=== PATIENT | female | born 1965 | race Caucasian/White ===

== ENCOUNTER 2025-07-06 02:57 | Day surgery (SDC) | payer BC, SELFPAY ==
[2025-07-03 08:30] VITALS: BMI 43.0
--- NOTE | 2025-07-03 08:37 | SUR.PREOP ---
[facility] has started construction of its new state of the art ER which will open Spring 2026. With this, we anticipate parking may be a challenge for some our surgical patients and families. Parking spaces are limited but are available for all Surgical, obstetrics, and ER patients sharing this lot. If you arrive and find you are having a hard time finding a parking space, please note that we understand the challenges, please drive around the hospital and park near Hospital Entrance 1. When you enter this entrance, you can ask a volunteer to direct or take you back to the surgical waiting area to check in. We appreciate everyone?s understanding of these expected challenges while we build for your future. Report to the Outpatient Waiting Room, entrance under the green pavilion located off [address], at time 1100 on date 07/06/25. Planned Procedure Time: 1300.? Time changes happen often and if your time is changed the preop area will call you the afternoon before. - You and your visitor will be asked to self-screen and do not enter if you have any COVID symptoms. Please call surgeon if you need to reschedule. - A mask is optional within the hospital at this time. Patients may have clear liquids (water, carbonated beverages, clear teas, apple juice) until 3 hours prior to surgery with a maximum of 20 ounces. - No food from midnight until time of surgery and no smoking, or chewing tobacco (or any form of nicotine). No chewing gum, candy or mints. - Infants may have breast milk until 4 hours before surgery, formula 6 hours prior to surgery. - Children will be allowed to drink immediately following surgery.? If applicable, please bring a bottle or sippy cup to assist with drinking. Juice, water, soda, and popsicles are readily available.? For infants on formula, please bring formula the day of surgery.? Pacifiers are allowed. Take only the following medications with a SIP of water on the morning of surgery: _n/a_ DO NOT STOP ANY OF YOUR OTHER PRESCRIPTION MEDICATIONS PRIOR TO SURGERY EXCEPT THE FOLLOWING Hold all vitamins and supplements for 3 days per anesthesiologist. Medications to discontinue per physician ___hold supplements and vitamins 3 days prior Date to take last dose na Please no make-up, nail malian, hairspray, perfume, deodorant, or body powder the day of surgery.? No jewelry (including any body piercings) or valuables the day of surgery, leave them at home.? Please take a shower or bath the night before, or the morning of, surgery with an antibacterial soap.? Wear comfortable, loose fitting clothing.? Children are encouraged to wear pajamas. - Jewelry must be removed prior to entering the operating room.? Rings and piercings that are not removed may be cut off. - The hospital will not accept responsibility for valuables.? - Please leave all valuables, including medications, at home the day of surgery. If you are going home after surgery, a licensed local company intermodal truck driver must drive you home.? - NO public transportation without another adult if you receive anesthesia. - We recommend that an adult stay with you for 24 hours following discharge. - We also recommend that you do not drive, make important decision, drink alcoholic beverages, or take any drugs that were not prescribed by your health care provider for at least 24 hours after your discharge time. For Pediatric surgeries, we recommend two adults accompany the child home. Follow any additional instructions given to you from your surgeon. Telephone instructions given to ___patient___and asked if any additional questions and then verbalized understanding. Patient advised to call surgeon office or pre surgery nurse liaison [phone] if any additional questions.
--- OUTSIDE RECORDS SUMMARY | 2025-07-06 03:01 | XMS_ITS | Encounter Summary ---
Author Organization [facility] Address [address] [place] [address] Care Team Providers Care Industrial Gas Fitter Name Role Phone Unavailable Primary Care Provider Unavailabl e Encounter Details Date Type Department Care Team (Late st Contact Info) Description 04/22/2023 Lab Requisition [facility] - DermPath Lab [address] [place] [address] Soledad Kuhn MD [address] [place] [address] Social History Tobacco Use Types Packs/Day Years Used Date Smoking Tobacco: Never Assessed Comments Unknown Sex and Gender Information Value Date Recorded Sex Assigned at Not on file 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 Gender Identity Not on file Sexual Orientation Not on file documented as of this encounter Plan of Treatment Not on file documented as of this encounter Procedures Procedure Name Priority Date/Time Associated Diagnosis Comments DERMATOPATHOLOGY Routine 04/21/2023 12:0 0 AM CDT documented in this encounter Results * DERMATOPATHOLOGY (04/21/2023 12:00 AM CDT) Case Report Dermatopathology Report Case: [id number] Authorizing Provider: Soledad Kuhn MD Collected: 04/21/2023 12:00 AM Ordering Location: [facility] DermPath Lab Received: 04/22/2023 02:01 PM Pathologist: Tavo Blair MD Specimen: Skin, right medial madrigal 3 2:26 PM CDT DERMATOPATHOLOGY LABORATORY Final Diagnosis Specimen A. SKIN, right medial madrigal: DERMATOFIBROMA (D23.9) 3 2:26 PM CDT DERMATOPATHOLOGY LABORATORY at 1426 CDT Clinical History Dermatofibroma 3 2:26 PM CDT DERMATOPATHOLOGY LABORATORY Gross Description Specimen A: Received is one formalin filled container labeled with the patient's name and designated right medial madrigal. The specimen consists of a shave biopsy measuring 7x7x2 mm. Jar 0. 3 2:26 PM CDT DERMATOPATHOLOGY LABORATORY Microscopic Description Specimen A. SKIN, right medial madrigal: There is epidermal hyperplasia. Within the dermis, there are fibrohistiocytic cells in haphazard array among coarse collagen bundles. 3 2:26 PM CDT DERMATOPATHOLOGY LABORATORY Disclaimer An external and internal positive and negative controls are appropriate for the histochemical, immunohistochemical and immunofluorescence stain(s) in this case (if any), except where stated explicitly. The performance characteristics of the stain(s) cited in this report were developed and its performance characteristic determined by the Dermatopathology Laboratory at [facility], directed by Dr. Jennifer Blair. These tests need not be, and therefore are not, approved by the [place] Food and Drug Administration. The tests are used for clinical purposes. Billing Codes Specimen Charges Stain Charges 74834 1 3 2:26 PM CDT DERMATOPATHOLOGY LABORATORY Embedded Images 3 2:26 PM CDT DERMATOPATHOLOGY LABORATORY Pathology/Cytolog y TISSUE SPECIMEN FROM SKIN / Unknown 04/21/2023 04/22/2023 2:01 PM CDT us Soledad Kuhn MD LAB - PATHOLOGY/CYTOLOGY ORDERAB LES Final Result DERMATOPATHOLOGY LABORATORY [facility] - Department of Dermatology [address], [address] [phone] documented in this encounter Visit Diagnoses Not on filedocumented in this encounter
--- OUTSIDE RECORDS SUMMARY | 2025-07-06 03:01 | XMS_ITS | Encounter Summary ---
Author Organization [facility] Address [address] [place] [address] Care Team Providers Care Master Cosmetologist Name Role Phone Unavailable Primary Care Provider Unavailabl e Encounter Details Date Type Department Care Team (Late st Contact Info) Description 04/21/2023 Lab Requisition [facility] - DermPath Lab [address] [place] [address] Soledad Kuhn MD [address] [place] [address] Neoplasm of uncertain behavior of skin Social History Tobacco Use Types Packs/Day Years Used Date Smoking Tobacco: Never Assessed Comments Unknown Sex and Gender Information Value Date Recorded Sex Assigned at Not on file 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
--- OUTSIDE RECORDS SUMMARY | 2025-07-06 03:01 | XMS_ITS | Clinical Summary ---
Author Organization [facility] Address [address] [place] [address] Care Team Providers Care Prefitter Name Role Phone Unavailable Primary Care Provider Unavailabl e Source Comments [facility],non-owned Affiliates and Associated Physician Practices is amultiple site organization consisting of ambulatory clinics and hospital sitesin [place], [place], [place] and [place]. This disclosure is being madepursuant to the Care Everywhere program and may not contain all information available regarding this patient. Last updated 18.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 Gender Identity Not on file Sexual Orientation Not on file Plan of Treatment Health Maintenance Due Date Last Done Comments COLOGUARD (AGES 45-75) - COL ON CA SCREENING 1963 COLON MONITORING 1963 COLONOSCOPY - COLON CA SCREENING 1963 CT COLONOGRAPHY - COLON CA SCREENING 1963 Colorectal Cancer Screening 1963 FIT - COLON CA SCREENING 1963 FLEX SIG - COLON CA SCREENING 1963 LIPID TESTING 1963 MAMMOGRAM 1963 HIV SCREENING 1978 HEPATITIS C SCREENING 07/31/1981 DTAP/TDAP/TD VACCINES (1 - Tdap) 1982 PAP SMEAR 1984 PNEUMOCOCCAL VACCINE 50+ (1 of 1 - PCV) 2013 ZOSTER VACCINE (1 of 2) 2013 DEPRESSION SCREENING 07/26/2024 COVID-19 VACCINE (1 - 2024-2 6 season) 2025 INFLUENZA VACCINE (#1) 2025 Respiratory Syncytial Virus (RSV) Vaccine Pt: or over 60 yrs (1 - 1-dose 75+ series) 2038 HEPATITIS B VACCINE Aged Out No longe r eligible based on patient's age to complete this topic HIB VACCINE Aged Out No longer eligi ble based on patient's age to complete this topic HPV VACCINE Aged Out No longer eligi ble based on patient's age to complete this topic MENINGOCOCCAL (Group B) VACC INE SHARED DECISION-MAKING Aged Out No longer eligibl e based on patient's age to complete this topic MENINGOCOCCAL GROUPS A/C/Y/W VACCINE Aged Out No longer eligible b ased on patient's age to complete [place] [id number] [employer]
--- OUTSIDE RECORDS SUMMARY | 2025-07-06 03:01 | XMS_ITS | Continuity of Care Document ---
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 Plan of Treatment Reminders Order Date Submit Date Provider Last Modified By Organization Details Last Modified Time Details Appointments SURG Hysterosc opy 2024 01:00P Tavo BARFIELD MD Not available Not available Not available SURG POST OP 2024 11:30A Tavo BARFIELD MD Not available Not available Not available Lab None recorded. Referral None recorded. Procedures None recorded. Surgeries None recorded. Imaging [facility], pelvis 2024 [email or web address] [place], [address], [place], [address], 06/27/2025 20:42:27 US, transvagi nal 2024 025 [email or web address] [place], [address], [place], [address], 06/27/2025 20:42:27 Medication Orders None recorded. Patient TargetsNo targets recorded. Patient InstructionsNo instructions recorded. Reason for Referral None Reported. Results Created Date Observation Date Name Description Value Unit Range Abnormal Flag Note LastModifiedBy Organization Detail LastModifiedTime 06/18/20 25 06/18/2025 CBC W/DIF F WBC 9.6 10'3/ uL 3.5-10 .5 Not Available [facility] (Lab) [address], [place], [address], 06/25/2025 23:43:17 06/18/20 25 06/18/2025 CBC W/DIF F RBC 5.01 10'6/ uL (based on docume nted legal sex) 3.80-5 .20 Not Available [facility] (Lab) [address], [place], [address], 06/25/2025 23:43:17 06/18/20 25 06/18/2025 CBC W/DIF F HGB 15.0 g/dL (based on docume nted legal sex) 11.6-1 5.4 Not Available [facility] (Lab) [address], [place], [address], 06/25/2025 23:43:17 06/18/20 25 06/18/2025 CBC W/DIF F HCT 45.0 % (based on docume nted legal sex) 34.0-4 5.0 Not Available [facility] (Lab) [address], [place], [address], 06/25/2025 23:43:17 06/18/20 25 06/18/2025 CBC W/DIF F MCV 89.8 fL 80.0-9 9.0 Not Available [facility] (Lab) [address], [place], [address], 06/25/2025 23:43:17 06/18/20 25 06/18/2025 CBC W/DIF F MCH 29.9 pg 27.0-3 4.0 Not Available [facility] (Lab) [address], [place], [address], 06/25/2025 23:43:17 06/18/20 25 06/18/2025 CBC W/DIF F MCHC 33.3 g/dL 32.0-3 5.5 Not Available [facility] (Lab) [address], [place], [address], 06/25/2025 23:43:17 06/18/20 25 06/18/2025 CBC W/DIF F RDW 13.7 % 11.0-1 5.0 Not Available [facility] (Lab) [address] [facility], [place], [address], 06/25/2025 23:43:17 06/18/20 25 06/18/2025 CBC W/DIF F plt 249 10'3/ uL 150-40 0 Not Available [facility] (Lab) [address] [facility], [place], [address], 06/25/2025 23:43:17 06/18/20 25 06/18/2025 CBC W/DIF F MPV 13.4 fL 8.8-12 .1 high Not Available [facility] (Lab) [address] [facility], [place], [address], 06/25/2025 23:43:17 06/18/20 25 06/18/2025 CBC W/DIF F NRBC's 0.0 % 0.0 Not Available [facility] (Lab) [address] [facility], [place], [address], 06/25/2025 23:43:17 06/18/20 25 06/18/2025 CBC W/DIF F absolute NRBCs 0.0 10'3/ uL no refere nce range establ ished Not Available [facility] (Lab) [address] [facility], [place], [address], 06/25/2025 23:43:17 06/18/20 25 06/18/2025 CBC W/DIF F neutrophils 61.8 % 34.0-7 3.0 Not Available [facility] (Lab) [address] [facility], [place], [address], 06/25/2025 23:43:17 06/18/20 25 06/18/2025 CBC W/DIF F lymphocytes 30.8 % 15.0-5 0.0 Not Available [facility] (Lab) [address] [facility], [place], [address], 06/25/2025 23:43:17 06/18/20 25 06/18/2025 CBC W/DIF F monocytes 5.9 % 1.0-15 .0 Not Available [facility] (Lab) [address] [facility], [place], [address], 06/25/2025 23:43:17 06/18/20 25 06/18/2025 CBC W/DIF F eosinophils 0.9 % 0.0-8. 0 Not Available [facility] (Lab) [address] [facility], [place], [address], 06/25/2025 23:43:17 06/18/20 25 06/18/2025 CBC W/DIF F basophils 0.2 % 0.0-2. 0 Not Available [facility] (Lab) [address] [facility], [place], [address], 06/25/2025 23:43:17 06/18/20 25 06/18/2025 CBC W/DIF F immature granulocytes 0.4 % no define d refere nce range Immat ure Granu locyt es (IG) repre sents autom ated enume ratio n of Metam yeloc ytes, Myelo cytes and Promy elocy jeremías when IG is < 5%. Blast s are not inclu ded in IG and repor fredy separ ately if prese nt. Not Available [facility] (Lab) [address] [facility], [place], [address], 06/25/2025 23:43:17 06/18/20 25 06/18/2025 CBC W/DIF F absolute neutrophils 5.9 10'3/ uL 1.5-8. 0 Not Available [facility] (Lab) [address] [facility], [place], [address], 06/25/2025 23:43:17 06/18/20 25 06/18/2025 CBC W/DIF F absolute lymphocytes 2.9 10'3/ uL 1.0-4. 0 Not Available [facility] (Lab) [address] [facility], [place], [address], 06/25/2025 23:43:17 06/18/20 25 06/18/2025 CBC W/DIF F absolute monocytes 0.6 10'3/ uL 0.2-1. 0 Not Available [facility] (Lab) [address] [place], [address], 06/25/2025 23:43:17 06/18/20 25 06/18/2025 CBC W/DIF F absolute eosinophils 0.1 10'3/ uL 0.0-0. 6 Not Available [facility] (Lab) [address] [facility], [place], [address], 06/25/2025 23:43:17 06/18/20 25 06/18/2025 CBC W/DIF F absolute basophils 0.0 10'3/ uL 0.0-0. 3 Not Available [facility] (Lab) [address] [facility], [place], [address], 06/25/2025 23:43:17 06/18/20 25 06/18/2025 CBC W/DIF F absolute immature granulocytes 0.0 10'3/ uL 0.00-0 .10 Refer ence range s for nonbi nary/ inter sex or unspe cifie d gende r patie nts have not been estab lishe d. Pleas e [facility] for range s estab lishe d for cisge nder patie nts and evalu ate in the clini [place] anna xt of the indiv idual patie nt: https ://la jya book. nm.or g/gen derx Not Available [facility] (Lab) [address] [place], [address], 06/25/2025 23:43:17 06/18/20 25 06/18/2025 CMP(C OMPRE HENSI VE METAB OLIC PANEL ) sodium 143 mmol/ L 133-14 6 Not Available [facility] (Lab) [address] [facility], [place], [address], 06/25/2025 23:43:17 06/18/20 25 06/18/2025 CMP(C OMPRE HENSI VE METAB OLIC PANEL ) potassium 4.4 mmol/ L 3.5-5. 1 Not Available [facility] (Lab) [address] [facility], [place], [address], 06/25/2025 23:43:17 06/18/20 25 06/18/2025 CMP(C OMPRE HENSI VE METAB OLIC PANEL ) chloride 105 mmol/ L 98-107 Not Available [facility] (Lab) [address] [facility], [place], [address], 06/25/2025 23:43:17 06/18/20 25 06/18/2025 CMP(C OMPRE HENSI VE METAB OLIC PANEL ) carbon dioxide 26 mmol/ L 21-31 Not Available [facility] (Lab) [address] [facility], [place], [address], 06/25/2025 23:43:17 06/18/20 25 06/18/2025 CMP(C OMPRE HENSI VE METAB OLIC PANEL ) anion gap 12 mmol/ L 4-13 Not Available [facility] (Lab) [address] [facility], [place], [address], 06/25/2025 23:43:17 06/18/20 25 06/18/2025 CMP(C OMPRE HENSI VE METAB OLIC PANEL ) blood urea nitrogen 13 mg/dL 7-25 Not Available [facility] (Lab) [address] [facility], [place], [address], 06/25/2025 23:43:17 06/18/20 25 06/18/2025 CMP(C OMPRE HENSI VE METAB OLIC PANEL ) creatinine 0.75 mg/dL 0.60-1 .30 Not Available [facility] (Lab) [address] [facility], [place], [address], 06/25/2025 23:43:17 06/18/20 25 06/18/2025 CMP(C OMPRE HENSI VE METAB OLIC PANEL ) egfrcr (CKD-epi 2020) >90 mL/mi n/1.7 3_m2 >=60 Not Available [facility] (Lab) [address], [place], [address], 06/25/2025 23:43:17 06/18/20 25 06/18/2025 CMP(C OMPRE HENSI VE METAB OLIC PANEL ) calcium 10.1 mg/dL 8.3-10 .5 Not Available [facility] (Lab) [address], [place], [address], 06/25/2025 23:43:17 06/18/20 25 06/18/2025 CMP(C OMPRE HENSI VE METAB OLIC PANEL ) glucose 97 mg/dL 70-100 Not Available [facility] (Lab) [address], [place], [address], 06/25/2025 23:43:17 06/18/20 25 06/18/2025 CMP(C OMPRE HENSI VE METAB OLIC PANEL ) protein, total 7.6 g/dL 6.4-8. 3 Not Available [facility] (Lab) [address] [facility], [place], [address], 06/25/2025 23:43:17 06/18/20 25 06/18/2025 CMP(C OMPRE HENSI VE METAB OLIC PANEL ) albumin 4.7 g/dL 3.5-5. 0 Not Available [facility] (Lab) [address], [place], [address], 06/25/2025 23:43:17 06/18/20 25 06/18/2025 CMP(C OMPRE HENSI VE METAB OLIC PANEL ) ALT 21 units /L 9-43 Not Available [facility] (Lab) [address] [facility], [place], [address], 06/25/2025 23:43:17 06/18/20 25 06/18/2025 CMP(C OMPRE HENSI VE METAB OLIC PANEL ) alkaline phosphatase 104 units /L 34-104 Not Available [facility] (Lab) [address] [facility], [place], [address], 06/25/2025 23:43:17 06/18/20 25 06/18/2025 CMP(C OMPRE HENSI VE METAB OLIC PANEL ) AST 25 units /L 13-39 Not Available [facility] (Lab) [address] [facility], [place], [address], 06/25/2025 23:43:17 06/18/20 25 06/18/2025 CMP(C OMPRE HENSI VE METAB OLIC PANEL ) bilirubin, total 0.4 mg/dL 0.2-1. 2 Not Available [facility] (Lab) [address] [place], [address], 06/25/2025 23:43:17 06/18/20 25 06/18/2025 DHEA SULFA TE DHEA-sulfate 148 ug/dL Femal e Range s Age(y ) Range (ug/d L) 10-15 34-28 0 15-20 65-36 8 20-25 148-4 07 25-35 99-34 0 35-45 61-33 7 45-55 35-25 6 55-65 19-20 5 65-75 9-246 > 75 12-15 4 Not Available [facility] (Lab) [address] [facility], [place], [address], 06/25/2025 23:43:17 06/18/20 25 06/18/2025 TSH, REFLE X FREE T4 TSH 3.43 uIU/m L 0.30-5 .33 Not Available [facility] (Lab) [address] [place], [address], 06/25/2025 23:43:18 06/18/20 25 06/18/2025 PROGE STERO NE progesterone 0.20 NG/mL The test metho d is elect scout milum inesc ence immun oassa y perfo rmed on the Scout Ozzy e801. Value s obtai tala with diffe rent assay metho ds by other labor atori es canno t be used inter [facility] . Femal e Proge stero ne Range s: Folli cular phase 0.06- 0.89 ng/mL Ovula tion phase 0.12- 12.00 ng/mL Lutea l phase 1.83- 23.90 ng/mL Postm enopa usal <0.05 -0.13 ng/mL Healt hy Pregn ant Women 1st Trime ster 11.0- 44.30 2nd Trime ster 25.40 -83.3 0 3rd Trime ster 58.70 -214. 00 Not Available [facility] (Lab) [address] [place], [address], 06/25/2025 23:43:18 06/18/20 25 06/18/2025 PROLA CTIN prolactin, total 9.00 NG/mL 4.79-2 3.30 The test metho d is [facility] immun oassa y perfo rmed on the [employer] Ozzy e801. Value s obtai tala with diffe rent assay metho ds by other labor atori es canno t be used inter [facility] . Not Available [facility] (Lab) [address] [place], [address], 06/25/2025 23:43:19 06/18/20 25 06/18/2025 FSH, LH, ESTRA DIOL estradiol 30.3 pg/mL The test metho d is elect scout milum inesc ence immun oassa y perfo rmed on the [employer] Ozzy e801. Value s obtai tala with diffe rent assay metho ds by other labor atori es canno t be used inter [facility] . Femal e Estra diol Range s: Folli cular phase 12.4- 233 pg/mL Ovula tion phase 41.0- 398 pg/mL Lutea l phase 22.3- 341 pg/mL Postm enopa usal <5-13 8 pg/mL Healt hy Pregn ant Women 1st Trime ster 154-3 243 pg/mL 2nd Trime ster 1561- 41283 pg/mL 3rd Trime ster 8525- >3000 0 pg/mL Not Available [facility] (Lab) [address], [place], [address], 06/25/2025 23:43:19 06/18/20 25 06/18/2025 FSH, LH, ESTRA DIOL FSH 48.7 mIU/m L The test metho d is elect scout milum inesc ence immun oassa y perfo rmed on the [employer] e801. Value s obtai tala with diffe rent assay metho ds by other labor atori es canno t be used inter [facility] . Femal es Folli cular : 3.5-1 2.5 mIU/m L Ovula tion: 4.7-2 1.5 mIU/m L Lutea l: 1.7-7 .7 mIU/m L Postm enopa use: 25.8- 134.8 mIU/m L Not Available [facility] (Lab) [address], [place], [address], 06/25/2025 23:43:19 06/18/20 25 06/18/2025 FSH, LH, ESTRA DIOL LH 28.1 mIU/m L The test metho d is elect scout milum inesc ence immun oassa y perfo rmed on the [employer] e801. Value s obtai tala with diffe rent assay metho ds by other labor atori es canno t be used inter [facility] . Femal es Mid-F ollic ular: 2.4-1 2.6 mIU/m L Mid-C ycle: 14.0- 95.6 mIU/m L Mid-L uteal : 1.0-1 1.4 mIU/m L Postm enopa use: 7.7-5 8.5 mIU/m L Not Available [facility] (Lab) [address], [place], [address], 06/25/2025 23:43:19 06/18/20 25 06/18/2025 HEMOG LOBIN A1C hemoglobin A1C 5.6 % 4.0-5. 6 The Ameri can Diabe jeremías Assoc iatio n recom mends that a prima ry goal of thera py caritoul d be a HBA1C of < 7% and that physi cians shoul d reeva luate the treat ment regim en in patie nts with HBA1C value s consi stent ly > 8%. <5.7% Morenita l 5.7 - 6.4% Incre ased risk for diabe jeremías >=6.5 % Diagn ostic of diabe jeremías <7.0% Goal of thera py >8.0% Actio n sugge sted Not Available [facility] (Lab) [address], [place], [address], 06/25/2025 23:43:19 06/18/2006/18/2025 TESTO STERO NE, FREE( DIALY SIS) AND TOTAL (LC/M S/MS) testosterone , total 36 NG/dL 2-45 For addit ional infor iris rodgers e refer to http: //[facility] [place] mishel darnell.que stdia gnost ics.c om/fa q/ Total Testo stero neLCM SMSFA Q165 (This link is being provi ded for infor serge galloway/ educa penelope l purpo ses only. ) This test was devel oped and its mei tical perfo rmanc e marisel cteri stics have been deter mined by [facility] [place], [place]. It has not been clear ed or appro diana by the U.S. Food and Drug Admin istra tion. This assay has been valid ated pursu ant to the CLIA regul ation s and is used for clini [place] purpo ses. Not Available [facility] (Lab) [address], [place], [address], 06/25/2025 23:43:19 06/18/20 25 06/18/2025 TESTO STERO NE, FREE( DIALY SIS) AND TOTAL (LC/M S/MS) testosterone , free 4.3 pg/mL 0.1-6. 4 This test was devel oped and its mei tical perfo rmanc e marisel cteri stics have been deter mined by [facility] [place], [place]. It has not been clear ed or appro diana by the U.S. Food and Drug Admin istra tion. This assay has been valid ated pursu ant to the CLIA regul ation s and is used for clini [place] purpo ses. Perfo rming Organ izati on Infor matdominga n: Site ID: AMD Name: [facility] Inst[facility] tute Addre ss: [id number] [employer]. [place], [place] Direc tor: Chacha Ventura MD PhD Not Available [facility] (Lab) [address] [facility], [place], [address], 06/25/2025 23:43:19 06/18/20 25 06/18/2025 IMAGE GUIDE D PAP AND HPV REGAR DLESS image guided Pap, HPV regardless of Pap result SEE RESULT S BELOW CASE REPOR T: Cytol ogy Gynec ologi [place] Repor t Case: [id number] Autho gordy g Provi myra: Dermo dy, Zhanna , ANP, DRAFTER (CAD) ELECTRONIC Colle cted: 06/18 1026 Order ing Locat ion: [place] Patho logy Recei diana: 06/19 0157 First Scree n: Nojohanny ni, Gary ed, CT Speci men: Scree ro Pap - Image d, Cervi x STATE MENT OF ADEQU ACY: Satis facto ry for evalu ation Trans forma tion zone compo nent absen t ----- ----- ----- ----- ----- ----- ----- ----- ----- ----- ----- ----- ----- ----- ----- ----- ----- ---- FINAL DIAGN OSIS: Negat mario for Intra epith elial Elham darnell or German villasenor (NIL) . 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 COMME NT: This speci men was revie wed by a Cytot echno logis t and/o r Patho logis t (as indic ated in this repor t) after evalu ation using the Thinp rep Imagi ng Syste m. CL[facility] [place] INFOR MATIO N: Menst rual Statu s: LMP (if appli cable ): 06/08 [facility] Histo ry/Pr eviou s Pap: Type of Neopl allison (if appli cable ): Signi fican t [facility] Findi ngs: Other Histo ry: Hormo jorge (if appli cable ): PAP EDUCA PENELOPE L NOTE: The Pap Test is a scree ro test with an inher ent false negat mario rate. Liqui d-bas ed sampl ing may decre ase, but will not elimi bonnie, false negat mario resul ts. A negat mario resul t does not precl ude the prese nce and/o r devel opmen t of disea se, since the prese nce of abnor mal cells in the sampl e depen ds on the locat ion of the lesio n and sampl ing techn ique. Violette nued regul ar scree ro is the best metho d of cance r preve ntion . If repor fredy cytol ogic findi ng do not corre late with physi [place] and/o r histo rical findi ngs, furth er inves tigat ion is recom cyn d, as laurai hector storm nted. Not Available [facility] (Lab) [address], [place], [address], 06/25/2025 23:43:20 06/27/20 25 06/27/2025 US, pelvi s No observ ation record ed. [facility] [address], [place], [address], 06/27/2025 13:28:46 06/27/20 25 06/27/2025 US, trans vagin al No observ ation record ed. [facility] [address], [place], [address], 06/27/2025 13:28:56 06/27/20 25 06/27/2025 US, pelvi s No observ ation record ed. [email or web address] [address] [place] [address], [place], [address], 06/27/2025 17:33:01 Result Notes None recorded. Problems Name Problem SNOMED Code Status Onset Date Resolution Date Notes Provider Name and Address Organization Details Recorded Time SNOMED CT Concept Active 2016 Encntr for general adult medical exam w/o abnormal findings;R ecorded Elsewhere: No Locatio n: [facility] rce: EHR Chroni c: N Practice ID: [id number] Billa ble Time: 01:15:00 PM Not Available [facility] 0 21:26:[address] Concept Active 2016 Encntr for patient care associate exam (general) (routine) w/o abn findings;R ecorded Elsewhere: No Locatio n: [facility] rce: EHR Chroni c: N Practice ID: [id number] Billa ble Time: 01:15:00 PM Not Available [facility] 0 21:26:26 Screening for malignant neoplasm of rectum Active 2016 Encounter for screening for malignant neoplasm of rectum;Rec orded Elsewhere: No Locatio n: [facility] rce: EHR Chroni c: N Practice ID: [id number] Billtalya ble Time: 01:15:00 PM Not Available [facility] 0 21:26:26 Problem Notes None recorded. Procedures Surgical History Date Name Laterality Status Provider Name and Address Organization Details Recorded Time 05/14/20 25 Date of Last Mammogram completed [facility] 06/18/2025 10:24:32 04/25/20 21 Date of Last Pap Smear completed [facility] 06/18/2025 10:24:32 07/26/19 17 completed [facility] 06/18/2025 10:24:32 07/26/18 97 Cholecystectomy completed [facility] 06/18/2025 10:32:50 06/05/19 83 Tonsillectomy completed [facility] 06/18/2025 10:32:55 Colonoscopy completed [facility] 06/18/2025 10:32:31 Imaging Results None recorded. Procedure Notes None recorded. Medical Equipment None Reported. Allergies Allergen ID Allergen Name Allergen Category Reaction Reaction Severity Criticality Documentation Date Start Date Code Code System Note Provider Name and Address Organization Details Recorded Time 88973 Product containin g penicilli n (product) medicatio n hives Not available [facility] 06/18/20252019 31681 8001 SNOMED Not Available [facility] - External Data Service - prod 03:12:37 62832 Penicilli n Not available hives moderate Not available 06/18/2025 28112 RxNorm [facility] 5 10:28:22 Medications Not known to be on any medication Vitals None Recorded Social History Question Answer Notes LastModified by Organizat ion Details LastModified Time Tobacco Smoking Status Current Every Day Smoker [facility] 06/18/2025 10:32:02 Do You Have An Advance Directive? No [email or web address] Information n ot available 06/18/2025 Are You Blind Or Do You Have Difficulty Seeing? No [email or web address] Information n ot available 06/18/2025 What Is Your Level Of Caffeine Consumption? Moderate [email or web address] Information not available 06/18/2025 How Much Tobacco Do You Chew? None [email or web address] Information not available 06/18/2025 In The 14 Days Before Symptom Onset, Have You Had Close Contact With A Laboratory-confirm ed COVID-19 While That Case Was Ill? No [email or web address] Information n ot available 06/18/2025 In The 14 Days Before Symptom Onset, Have You Had Close Contact With A Person Who Is Under Investigation For COVID-19 While That Person Was Ill? No [email or web address] Information not available 06/18/2025 Have You Been To An Area Known To Be High Risk For COVID-19? No [email or web address] Information not available 06/18/2025 Are You Deaf Or Do You Have Serious Difficulty Hearing? No [email or web address] Information not available 06/18/2025 What Type Of Diet Are You Following? REGULAR [email or web address] Information n ot available 06/18/2025 What Is The Highest Grade Or Level Of School You Have Completed Or The Highest Degree You Have Received? [id number] [email or web address] Information not available 06/18/2025 Are There Any Guns Present In Your Home? No [email or web address] Information not available 06/18/2025 Do You Use Protection During Sex? No [email or web address] Information not available 06/18/2025 Do You Use Your Seat Belt Or Car Seat Routinely? Yes [email or web address] Information not available 06/18/2025 Are You Sexually Active? Yes [email or web address] Information not available 06/18/2025 Do You Have Smoke And Carbon Monoxide Detectors In Your Home? Yes [email or web address] Information not available 06/18/2025 At What Age Did You Start Smoking Tobacco? 18 [email or web address] Information not available 06/18/2025 How Much Tobacco Do You Smoke? 1 PPW [email or web address] Information not available 06/18/2025 Do You Use Sunscreen Routinely? Yes [email or web address] Information not available 06/18/2025 How Many Years Have You Smoked Tobacco? 30 [email or web address] Information not available 06/18/2025 Have You Used IV Drugs? No [email or web address] Information not available 06/18/2025 Do You Have Difficulty Walking Or Climbing Stairs? No [email or web address] Information not available 06/18/2025 Sex: Unknown Functional Status Question Answer Note LastModified by Organizat ion Details LastModified Time Do you use any illicit or recreational drugs? No [email or web address] Information not available 06/18/2025 What is your level of alcohol consumption? Occasional [email or web address] Information not available 06/18/2025 Are you currently employed? Yes [email or web address] Information not available 06/18/2025 Are you able to care for yourself independently? 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 No Information not available 06/18/2025 What is your exercise level? Occasional [email or web address] Information not available 06/18/2025 Mental Status Question Answer Note LastModified by Organization D etails LastModified Time Do you feel stressed (tense, restless, nervous, or anxious, or unable to sleep at night)? [id number] [email or web address] Information not available 06/18/2025 Family History Relationship Description Onset Age of this Age Resolved Age Notes LastModified by Organization Details LastModified Time Unspecified Relation Malignant neoplasm of cervix uteri niece [email or web address] Not available 10:31:52 Medical History Condition Response No Past Medical History Y Gynecological History Statement/Question Response Abnormal Pap Y Flow Light Date of Last Mammogram 05/14/2025 Date of LMP 06/08/2025 Y STIs/STDs N HPV Vaccine N Duration of Flow (days) 2 Current Control Method Partner Vas ectomy Age at First Child 22 If Post Menopausal, Age at Menopause 47 Date of Last Colonoscopy Sexually Active? Y Date of DEXA bone scan Age of first menstrual cycle 9 Date of Last Pap Smear 04/25/2021 Sexual Problems? N Desired Control Method None 07/26/2016 N 08/26/1986 Obstetrics History GPAL:G 2 P 2 0 0 2 Type Value Full Term 2 Living 2 Total 2 Past Encounters Encounter ID Performer Location Encounter Start Date Encounter Closed Date Diagnosis/Indication Diagnosis SNOMED-CT Code Diagnosis ICD10 Code Diagnosis IMO Codes Diagnosis Note [id number] ZHANNA MATHEWS NP [place] [address] [address] 06/18/2025 10:17:38 06/18/2025 11:14:01 Abnormal uterine bleeding [id number] N93.9 [id number] The patient and I discussed the various causes of abnormal uterine bleeding, including polyps, fibroids, hyperplasi a, atypia, anovulatio n, etc.We reviewed the typical evaluation with labs, pelvic US and possible endometria l biopsy. Briefly discussed the options available for treatment (depending on the results of evaluation ).Pelvic ultrasound and labs ordered.Wi ll f/u with results and next steps in plan of care. [id number] Nathan Barfiedl MD [place] [address] [address] 06/27/2025 10:18:03 06/27/2025 11:00:31 Abnormal uterine bleeding [id number] 9100 N93.9 [id number] Health Concerns Section Related Observation LastModified by Organization Detai ls LastModified Time None Recorded Concern Status LastModified by Organization Details LastModified Time None Recorded Payers Encounter Date Sequence Insurance Name Policy Number Policy Martinez Covered Member ID Martinez Member ID Guarantor Name 06/27/2025 1 [id number] [id number] Juanita Collins [id number] Juanita Collins OBGyn Episode No OBEpisode recorded.
--- OUTSIDE RECORDS SUMMARY | 2025-07-06 03:01 | XMS_ITS | Clinical Summary ---
Author Organization [facility] [address] [place] [address] Care Team Providers Care Engine Manager Name Role Phone Naya Alicea Primary Care Provider [phone] Allergies Active Allergy Reactions Criticality Noted Date Comments Penicillins Hives Medium 12/24/2020 Medications No known medications Active Problems Problem Noted Date Diagnosed Date Dizziness and giddiness 12/24/2020 Surgical History Surgery Date Site/Laterality Comments TONSILLECTOMY CHOLECYSTECTOMY Family History Medical History Relation Name Comments Cancer Brother Relation Name Status Comments Brother Social History Tobacco Use Types Packs/Day Years Used Date Smoking Tobacco: Every Day Cigarettes Smokeless Tobacco: Never Personal Safety Answer Date Recorded Getting School Help Needed Not on file 09/25 Comments Unknown Sex and Gender Information Value Date Recorded Sex Assigned at Not on file Legal Sex Female 11:36 AM CDT Gender Identity Female 12/19/2020 8:48 AM CDT Sexual Orientation Straight 12/19/2020 8: 48 AM CDT Last Filed Vital Signs Vital Sign Reading Time Taken Comments Blood Pressure - - Pulse - - Temperature 36.8 C (98.2 F) 12/24/2020 2:01 PM CDT Respiratory Rate - - Oxygen Saturation - - Inhaled Oxygen Concentration - - Weight 113.4 kg (250 lb) 12/24/2020 2:01 PM CDT Height 170.2 cm (5' 7) 12/24/2020 2:01 PM CDT Body Mass Index 39.16 12/24/2020 2:01 PM CDT Plan of Treatment Not on file Insurance [employer] [id number] Care Teams Engine Manager Relationship Specialty Start Date End Date Naya Alicea PA PCP - General Physician Casing Wringer Operator 12/17/20
--- OUTSIDE RECORDS SUMMARY | 2025-07-06 03:02 | XMS_ITS | Data Portability ---
Author Organization [facility] Address [address] [place] [address] Care Team Providers Care Precision Dyer Name Role Phone MIR COLONSIE Primary Care Provider Assessment No assessment recorded. Plan of Treatment Reminders Order Date Submit Date Provider Last Modified By Organization Details Last Modified Time Details Appointments SURG Hysterosc opy 2024 01:00P Tavo BARFIELD MD Not available Not available Not available SURG POST OP 2024 11:30A Tavo BARFIELD MD Not available Not available Not available Lab hormone panel, serum or plasma 2024 025 [facility] (Lab), [address], [place], [address], 06/25/2025 23:43:19 TSH, serum or plasma 2024 025 [facility] (Lab), [address], [place], [address], 06/25/2025 23:43:18 CBC w/ auto diff 2024 025 [facility] (Lab), [address], [place], [address], 06/25/2025 23:43:17 progester one, serum 2024 025 [facility] (Lab), [address], [place], [address], 06/25/2025 23:43:18 prolactin , serum 2024 025 [facility] (Lab), [address] , [place], [address], 06/25/2025 23:43:19 testoster one free/test osterone total, ratio, serum 2024 025 [facility] (Lab), [address], [place], [address], 06/25/2025 23:43:19 dhea-sulf ate, serum 2024 025 [facility] (Lab), [address], [place], [address], 06/25/2025 23:43:18 CMP, serum or plasma 2024 025 [facility] (Lab), [address] , [place], [address], 06/25/2025 23:43:17 HbA1c (hemoglob in A1c), blood 2024 025 [facility] (Lab), [address], [place], [address], 06/25/2025 23:43:19 pap, IG + HR HPV - HPV regardles s but if HPV is positive need subtyping 16,18/45 2024 025 [facility] (Lab), [address] , [place], [address], 06/25/2025 23:43:20 Referral None recorded. Procedures None recorded. Surgeries dilation and curettage with hysterosc opy (SURG) 2024 025 [email or web address] [facility], [address] [address], [place], [address], 07/02/2025 13:08:52 Imaging US, pelvis 2024 025 [email or web address], [place], [address], 06/27/2025 20:42:27 US, transvagi nal 2024 025 [email or web address], [address], [place], [address], 06/27/2025 20:42:27 Medication Orders None recorded. Patient TargetsNo targets recorded. Patient InstructionsNo instructions recorded. Reason for Referral None Reported. Results Created Date Observation Date Name Description Value Unit Range Abnormal Flag Note LastModifiedBy Organization Detail LastModifiedTime 06/18/2006/18/2025 CBC W/DIF F WBC 9.6 10'3/ uL 3.5-10 .5 Not Available [facility] (Lab) [address], [place], [address], 06/25/2025 23:43:17 06/18/20 25 06/18/2025 CBC W/DIF F RBC 5.01 10'6/ uL (based on docume nted legal sex) 3.80-5 .20 Not Available [facility] (Lab) [address], [place], [address], 06/25/2025 23:43:17 06/18/20 25 06/18/2025 CBC W/DIF F HGB 15.0 g/dL (based on docume nted legal sex) 11.6-1 5.4 Not Available [facility] (Lab) [address], [place], [address], 06/25/2025 23:43:17 06/18/20 25 06/18/2025 CBC W/DIF F HCT 45.0 % (based on docume nted legal sex) 34.0-4 5.0 Not Available [facility] (Lab) [address], [place], [address], 06/25/2025 23:43:17 06/18/20 25 06/18/2025 CBC W/DIF F MCV 89.8 fL 80.0-9 9.0 Not Available [facility] (Lab) [address], [place], [address], 06/25/2025 23:43:17 06/18/20 25 06/18/2025 CBC W/DIF F MCH 29.9 pg 27.0-3 4.0 Not Available [facility] (Lab) [address], [place], [address], 06/25/2025 23:43:17 06/18/20 25 06/18/2025 CBC W/DIF F MCHC 33.3 g/dL 32.0-3 5.5 Not Available [facility] (Lab) [address], [place], [address], 06/25/2025 23:43:17 06/18/20 25 06/18/2025 CBC W/DIF F RDW 13.7 % 11.0-1 5.0 Not Available [facility] (Lab) [address], [place], [address], 06/25/2025 23:43:17 06/18/20 25 06/18/2025 CBC W/DIF F plt 249 10'3/ uL 150-40 0 Not Available [facility] (Lab) [address], [place], [address], 06/25/2025 23:43:17 06/18/20 25 06/18/2025 CBC W/DIF F MPV 13.4 fL 8.8-12 .1 high Not Available [facility] (Lab) [address], [place], [address], 06/25/2025 23:43:17 06/18/20 25 06/18/2025 CBC W/DIF F NRBC's 0.0 % 0.0 Not Available [facility] (Lab) [address], [place], [address], 06/25/2025 23:43:17 06/18/20 25 06/18/2025 CBC W/DIF F absolute NRBCs 0.0 10'3/ uL no refere nce range establ ished Not Available [facility] (Lab) [address] [facility], [place], [address], 06/25/2025 23:43:17 06/18/20 25 06/18/2025 CBC W/DIF F neutrophils 61.8 % 34.0-7 3.0 Not Available [facility] (Lab) [address] [facility], [place], [address], 06/25/2025 23:43:17 06/18/20 25 06/18/2025 CBC W/DIF F lymphocytes 30.8 % 15.0-5 0.0 Not Available [facility] (Lab) [address] [facility], [place], [address], 06/25/2025 23:43:17 06/18/20 25 06/18/2025 CBC W/DIF F monocytes 5.9 % 1.0-15 .0 Not Available [facility] (Lab) [address] [facility], [place], [address], 06/25/2025 23:43:17 06/18/20 25 06/18/2025 CBC W/DIF F eosinophils 0.9 % 0.0-8. 0 Not Available [facility] (Lab) [address] [facility], [place], [address], 06/25/2025 23:43:17 06/18/20 25 06/18/2025 CBC W/DIF F basophils 0.2 % 0.0-2. 0 Not Available [facility] (Lab) [address] [place], [address], 06/25/2025 23:43:17 06/18/20 25 06/18/2025 CBC W/DIF [...] separ ately if prese nt. Not Available [facility] (Lab) [address] [facility], [place], [address], 06/25/2025 23:43:17 06/18/20 25 06/18/2025 CBC W/DIF F absolute neutrophils 5.9 10'3/ uL 1.5-8. 0 Not Available [facility] (Lab) [address] [facility], [place], [address], 06/25/2025 23:43:17 06/18/20 25 06/18/2025 CBC W/DIF F absolute lymphocytes 2.9 10'3/ uL 1.0-4. 0 Not Available [facility] (Lab) [address] [facility], [place], [address], 06/25/2025 23:43:17 06/18/20 25 06/18/2025 CBC W/DIF F absolute monocytes 0.6 10'3/ uL 0.2-1. 0 Not Available [facility] (Lab) [address] [facility], [place], [address], 06/25/2025 23:43:17 06/18/20 25 06/18/2025 CBC W/DIF F absolute eosinophils 0.1 10'3/ uL 0.0-0. 6 Not Available [facility] (Lab) [address] [facility], [place], [address], 06/25/2025 23:43:17 06/18/20 25 06/18/2025 CBC W/DIF F absolute basophils 0.0 10'3/ uL 0.0-0. 3 Not Available [facility] (Lab) [address] [place], [address], 06/25/2025 23:43:17 06/18/20 25 06/18/2025 CBC W/DIF F absolute immature granulocytes 0.0 10'3/ uL 0.00-0 .10 Refer ence range s for nonbi nary/ inter sex or unspe cifie d gende r patie nts have not been estab lishe d. Iris palacios refer to the jose martin calvillo table for range s estab lishe d for cisge nder patie nts and evalu ate in the clini [place] anna xt of the indiv idual patie nt: https ://licha thompson book. nm.or g/gen derx Not Available [facility] (Lab) [address], [place], [address], 06/25/2025 23:43:17 06/18/20 25 06/18/2025 CMP(C OMPRE HENSI VE METAB OLIC PANEL ) sodium 143 mmol/ L 133-14 6 Not Available [facility] (Lab) [address], [place], [address], 06/25/2025 23:43:17 06/18/20 25 06/18/2025 CMP(C OMPRE HENSI VE METAB OLIC PANEL ) potassium 4.4 mmol/ L 3.5-5. 1 Not Available [facility] (Lab) [address] [facility], [place], [address], 06/25/2025 23:43:17 06/18/20 25 06/18/2025 CMP(C OMPRE HENSI VE METAB OLIC PANEL ) chloride 105 mmol/ L 98-107 Not Available [facility] (Lab) [address] , [place], [address], 06/25/2025 23:43:17 06/18/20 25 06/18/2025 CMP(C OMPRE HENSI VE METAB OLIC PANEL ) carbon dioxide 26 mmol/ L 21-31 Not Available [facility] (Lab) [address] , [place], [address], 06/25/2025 23:43:17 06/18/20 25 06/18/2025 CMP(C OMPRE HENSI VE METAB OLIC PANEL ) anion gap 12 mmol/ L 4-13 Not Available [facility] (Lab) [address], [place], [address], 06/25/2025 23:43:17 06/18/20 25 06/18/2025 CMP(C OMPRE HENSI VE METAB OLIC PANEL ) blood urea nitrogen 13 mg/dL 7-25 Not Available [facility] (Lab) [address] [facility], [place], [address], 06/25/2025 23:43:17 06/18/20 25 06/18/2025 CMP(C OMPRE HENSI VE METAB OLIC PANEL ) creatinine 0.75 mg/dL 0.60-1 .30 Not Available [facility] (Lab) [address] [facility], [place], [address], 06/25/2025 23:43:17 06/18/20 25 06/18/2025 CMP(C OMPRE HENSI VE METAB OLIC PANEL ) egfrcr (CKD-epi 2020) >90 mL/mi n/1.7 3_m2 >=60 Not Available [facility] (Lab) [address] [facility], [place], [address], 06/25/2025 23:43:17 06/18/20 25 06/18/2025 CMP(C OMPRE HENSI VE METAB OLIC PANEL ) calcium 10.1 mg/dL 8.3-10 .5 Not Available [facility] (Lab) [address] [facility], [place], [address], 06/25/2025 23:43:17 06/18/20 25 06/18/2025 CMP(C OMPRE HENSI VE METAB OLIC PANEL ) glucose 97 mg/dL 70-100 Not Available [facility] (Lab) [address] [facility], [place], [address], 06/25/2025 23:43:17 06/18/20 25 06/18/2025 CMP(C OMPRE HENSI VE METAB OLIC PANEL ) protein, total 7.6 g/dL 6.4-8. 3 Not Available [facility] (Lab) [address] [facility], [place], [address], 06/25/2025 23:43:17 06/18/20 25 06/18/2025 CMP(C OMPRE HENSI VE METAB OLIC PANEL ) albumin 4.7 g/dL 3.5-5. 0 Not Available [facility] (Lab) [address] [facility], [place], [address], 06/25/2025 23:43:17 06/18/20 25 06/18/2025 CMP(C OMPRE HENSI VE METAB OLIC PANEL ) ALT 21 units /L 9-43 Not Available [facility] (Lab) [address] [facility], [place], [address], 06/25/2025 23:43:17 06/18/20 25 06/18/2025 CMP(C OMPRE HENSI VE METAB OLIC PANEL ) alkaline phosphatase 104 units /L 34-104 Not Available [facility] (Lab) [address] [facility], [place], [address], 06/25/2025 23:43:17 06/18/20 25 06/18/2025 CMP(C OMPRE HENSI VE METAB OLIC PANEL ) AST 25 units /L 13-39 Not Available [facility] (Lab) [address] [facility], [place], [address], 06/25/2025 23:43:17 06/18/20 25 06/18/2025 CMP(C OMPRE HENSI VE METAB OLIC PANEL ) bilirubin, total 0.4 mg/dL 0.2-1. 2 Not Available [facility] (Lab) [address] [place], [address], 06/25/2025 23:43:17 06/18/20 25 06/18/2025 DHEA SULFA TE DHEA-sulfate 148 ug/dL Femal e Range s Age(y ) Range (ug/d L) 10-15 34-28 0 15-20 65-36 8 20-25 148-4 07 25-35 99-34 0 35-45 61-33 7 45-55 35-25 6 55-65 19-20 5 65-75 9-246 > 75 12-15 4 Not Available [facility] (Lab) [address] [facility], [place], [address], 06/25/2025 23:43:17 06/18/20 25 06/18/2025 TSH, REFLE X FREE T4 TSH 3.43 uIU/m L 0.30-5 .33 Not Available [facility] (Lab) [address] [facility], [place], [address], 06/25/2025 23:43:18 06/18/20 25 06/18/2025 PROGE STERO NE progesterone 0.20 NG/mL The test metho d is elect scout milum inesc ence immun oassa y perfo rmed on the Scout Ozzy e801. Value s obtai tala with diffe rent assay metho ds by other labor atori es canno t be used inter casanova eably . Femal e Proge stero ne Range s: Folli cular phase 0.06- 0.89 ng/mL Ovula tion phase 0.12- 12.00 ng/mL Lutea l phase 1.83- 23.90 ng/mL Postm enopa usal <0.05 -0.13 ng/mL Healt hy Pregn ant Women 1st Trime ster 11.0- 44.30 2nd Trime ster 25.40 -83.3 0 3rd Trime ster 58.70 -214. 00 Not Available [facility] (Lab) [address] [facility], [place], [address], 06/25/2025 23:43:18 06/18/20 25 06/18/2025 PROLA CTIN prolactin, total 9.00 NG/mL 4.79-2 3.30 The test metho d is elect scout milum inesc ence immun oassa y perfo rmed on the Scout Ozzy e801. Value s obtai tala with diffe rent assay metho ds by other labor atori es canno t be used inter casanova eably . Not Available [facility] (Lab) [address] [place], [address], 06/25/2025 23:43:19 06/18/20 25 06/18/2025 FSH, LH, ESTRA DIOL estradiol 30.3 pg/mL The test metho d is elect scout milum inesc ence immun oassa y perfo rmed on the Scout Ozzy e801. Value s obtai tala with diffe rent assay metho ds by other labor atori es canno t be used inter [facility] . Femal e Estra diol Range s: Folli cular phase 12.4- 233 pg/mL Ovula tion phase 41.0- 398 pg/mL Lutea l phase 22.3- 341 pg/mL Postm enopa usal <5-13 8 pg/mL Healt hy Pregn ant Women 1st Trime ster 154-3 243 pg/mL 2nd Trime ster 1561- 89892 pg/mL 3rd Trime ster 8525- >3000 0 pg/mL Not Available [facility] (Lab) [address] [place], [address], 06/25/2025 23:43:19 06/18/20 25 06/18/2025 FSH, LH, ESTRA DIOL FSH 48.7 mIU/m L The test metho d is elect scout milum inesc ence immun oassa y perfo rmed on the Scout Ozzy e801. Value s obtai tala with diffe rent assay metho ds by other labor atori es canno t be used inter [facility] . Femal es Folli cular : 3.5-1 2.5 mIU/m L Ovula tion: 4.7-2 1.5 mIU/m L Lutea l: 1.7-7 .7 mIU/m L Postm enopa use: 25.8- 134.8 mIU/m L Not Available [facility] (Lab) [address] [place], [address], 06/25/2025 23:43:19 06/18/20 25 06/18/2025 FSH, LH, ESTRA DIOL LH 28.1 mIU/m L The test metho d is elect scout milum inesc ence immun oassa y perfo rmed on the Scout Ozzy e801. Value s obtai tala with diffe rent assay metho ds by other labor atori es canno t be used inter casanova eably . Femal es Mid-F ollic ular: 2.4-1 2.6 mIU/m L Mid-C ycle: 14.0- 95.6 mIU/m L Mid-L uteal : 1.0-1 1.4 mIU/m L Postm enopa use: 7.7-5 8.5 mIU/m L Not Available [facility] (Lab) [address], [place], [address], 06/25/2025 23:43:19 06/18/20 25 06/18/2025 HEMOG LOBIN A1C hemoglobin A1C 5.6 % 4.0-5. 6 The Ameri can Diabe jeremías Assoc iatio n recom mends that a prima ry goal of thera py shoul d be a HBA1C of < 7% and that physi cians shoul d reeva luate the treat ment regim en in patie nts with HBA1C value s consi stent ly > 8%. <5.7% Morenita l 5.7 - 6.4% Incre ased risk for diabe jeremías >=6.5 % Diagn ostic of diabe jeremías <7.0% Goal of thera py >8.0% Actio n sugge sted Not Available [facility] (Lab) [address], [place], [address], 06/25/2025 23:43:19 06/18/20 25 06/18/2025 TESTO STERO NE, FREE( DIALY SIS) AND TOTAL (LC/M S/MS) testosterone , total 36 NG/dL 2-45 For addit ional kulwinderr iris rodgers e refer to http: //john amesque stdia gnost ics.c om/fa q/ Total Testo stero neLCM SMSFA Q165 (This link is being provi ded for infor serge nal/ educa penelope l purpo ses only. ) This test was devel oped and its mei tical perfo rmanc e marisel cteri stics have been deter mined by [employer] [facility] [facility] [place]. It has not been clear ed or appro diana by the U.S. Food and Drug Admin istra tion. This assay has been valid ated pursu ant to the CLIA regul ation s and is used for clini [place] purpo ses. Not Available [facility] (Lab) [address] [facility], [place], [address], 06/25/2025 23:43:19 06/18/20 25 06/18/2025 TESTO STERO NE, FREE( DIALY SIS) AND TOTAL (LC/M S/MS) testosterone , free 4.3 pg/mL 0.1-6. 4 This test was devel oped and its mei tical perfo rmanc e marisel cteri stics have been deter mined by [employer] [facility] [facility] [place]. It has not been clear ed or appro diana by the U.S. Food and Drug Admin istra tion. This assay has been valid ated pursu ant to the CLIA regul ation s and is used for clini [place] purpo ses. Perfo rming Organ izati on Infor matio n: Site ID: AMD Name: [employer] silvia [employer]erm[employer].fmi Appetasphilip Addre ss: [id number] [place], [place] Direc tor: Chacha Ventura MD PhD Not Available [facility] (Lab) [address] [facility], [place], [address], 06/25/2025 23:43:19 06/18/2006/18/2025 IMAGE GUIDE D PAP AND HPV REGAR DLESS image guided Pap, HPV regardless of Pap result SEE RESULT S BELOW CASE REPOR T: Cytol ogy Gynec ologi madison Repor t Case: [id number] Autho riawaisn g Provi myra: Dermo dy, Zhanna , ANP, PATHOLOGIST Colle cted: 06/18 1026 Order ing Locat ion: [place] Patho logrosa maria Recei diana: 06/19 0157 [place] n: Xochilt snell, Gary rhodes, CT Speci men: Jahaira starr Pap - Image d, Cervi x STATE MENT OF ADEQU ACY: Satis facto ry for evalu ation Trans forma tion zone compo nent absen t ----- ----- ----- ----- ----- ----- ----- ----- ----- ----- ----- ----- ----- ----- ----- ----- ----- ---- FINAL DIAGN OSIS: Negat mario for Intra epith elial Lesio carie or German villasenor ([facility]) . 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 Not Available [facility] (Lab) [address] [facility], [place], [address], 06/25/2025 23:43:20 06/27/20 25 06/27/2025 US, olga hoyt No observ ation record ed. [facility] [address], [place], [address], 06/27/2025 13:28:46 06/27/20 25 06/27/2025 US, bobby nj No observ ation record ed. [facility] [address], [place], [address], 06/27/2025 13:28:56 06/27/20 25 06/27/2025 US, pelvi s No observ ation record ed. [email or web address] [address] [address], [place], [address], 06/27/2025 17:33:01 Result Notes None recorded. 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 Procedures Surgical History Date Name Laterality Status Provider Name and Address Organization Details Recorded Time 05/14/20 25 Date of Last Mammogram completed [facility] 06/18/2025 10:24:32 04/25/20 21 Date of Last Pap Smear completed [facility] 06/18/2025 10:24:32 07/26/19 17 completed [facility] 06/18/2025 10:24:32 07/26/18 97 Cholecystectomy completed [facility] 06/18/2025 10:32:50 06/05/19 83 Tonsillectomy completed [facility] 06/18/2025 10:32:55 Colonoscopy completed [facility] 06/18/2025 10:32:31 Imaging Results None recorded. Procedure Notes None recorded. Medical Equipment None Reported. Allergies Allergen ID Allergen Name Allergen Category Reaction Reaction Severity Criticality Documentation Date Start Date Code Code System Note Provider Name and Address Organization Details Recorded Time 43651 Product containin g penicilli n (product) medicatio n hives Not available high 06/18/20252019 01703 8001 SNOMED Not Available theresa - External Data Service - prod 03:12:37 35289 Penicilli n Not available hives moderate Not available 06/18/2025 05830 RxNorm [facility] 10:28:22 Medications Not known to be on any medication Vitals Date Recorded Body height Body mass index (BMI) Body weight Systolic And Diastolic Provider Name and Address Organization Details Last Updated DateTime 06/18/2025 170.18 cm 43 kg/m2 914039.18 g 134/84 mm[Hg] Yanna Unger [facility] 06/18/2025 10:34:24 Date Recorded Body height Body mass index (BMI) Body weight Systolic And Diastolic Provider Name and Address Organization Details Last Updated DateTime 07/02/2025 170.18 cm 42.9 kg/m2 137747.31 g 172/92 mm[Hg] Katiana Chahal [facility] 07/02/2025 10:24:38 Social History Question Answer Notes LastModified by Organizat ion Details LastModified Time Tobacco Smoking Status Current Every Day Smoker Yanna [facility] 06/18/2025 10:32:02 Do You Have An Advance Directive? No [email or web address] Information n ot available 06/18/2025 Are You Blind Or Do You Have Difficulty Seeing? No [email or web address] Information n ot available 06/18/2025 What Is Your Level Of Caffeine Consumption? Moderate [email or web address] Information not available 06/18/2025 How Much Tobacco Do You Chew? None [email or web address] Information not available 06/18/2025 In The 14 Days Before Symptom Onset, Have You Had Close Contact With A Laboratory-confirm ed COVID-19 While That Case Was Ill? No Information n ot available 06/18/2025 In The 14 Days Before Symptom Onset, Have You Had Close Contact With A Person Who Is Under Investigation For COVID-19 While That Person Was Ill? No Information not available 06/18/2025 Have You Been To An Area Known To Be High Risk For COVID-19? No [email or web address] Information not available 06/18/2025 Are You Deaf Or Do You Have Serious Difficulty Hearing? No [email or web address] Information not available 06/18/2025 What Type Of Diet Are You Following? REGULAR [email or web address] Information n ot available 06/18/2025 What Is The Highest Grade Or Level Of School You Have Completed Or The Highest Degree You Have Received? [id number] Information not available 06/18/2025 Are There Any Guns Present In Your Home? No [email or web address] Information not available 06/18/2025 Do You Use Protection During Sex? No [email or web address] Information not available 06/18/2025 Do You Use Your Seat Belt Or Car Seat Routinely? Yes Information not available 06/18/2025 Are You Sexually Active? Yes [email or web address] Information not available 06/18/2025 Do You Have Smoke And Carbon Monoxide Detectors In Your Home? Yes [email or web address] Information not available 06/18/2025 At What Age Did You Start Smoking Tobacco? 18 [email or web address] Information not available 06/18/2025 How Much Tobacco Do You Smoke? 1 PPW [email or web address] Information not available 06/18/2025 Do You Use Sunscreen Routinely? Yes [email or web address] Information not available 06/18/2025 How Many Years Have You Smoked Tobacco? 30 Information not available 06/18/2025 Have You Used IV Drugs? No [email or web address] Information not available 06/18/2025 Do You Have Difficulty Walking Or Climbing Stairs? No [email or web address] Information not available 06/18/2025 Sex: Unknown Functional Status Question Answer Note LastModified by Organizat ion Details LastModified Time Do you use any illicit or recreational drugs? No Information not available 06/18/2025 What is your level of alcohol consumption? Occasional [email or web address] Information not available 06/18/2025 Are you currently employed? Yes [email or web address] Information not available 06/18/2025 Are you able to care for yourself independently? 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 No [email or web address] Information not available 06/18/2025 What is your exercise level? Occasional [email or web address] Information not available 06/18/2025 Mental Status Question Answer Note LastModified by Organization D etails LastModified Time Do you feel stressed (tense, restless, nervous, or anxious, or unable to sleep at night)? [id number] Information not available 06/18/2025 Family History Relationship Description Onset Age of this Age Resolved Age Notes LastModified by Organization Details LastModified Time Unspecified Relation Malignant neoplasm of cervix uteri niece [id number] Not available 10:31:52 Medical History Condition Response [...] ICD10 Code Diagnosis IMO Codes Diagnosis Note [id number] ZHANNA MATHEWS NP [facility] [address] [address] 06/18/2025 10:17:38 06/18/2025 11:14:01 Abnormal uterine bleeding [id number] N93.9 [id number] The patient and I discussed the various causes of abnormal uterine bleeding, including polyps, fibroids, hyperplasi a, atypia, anovulatio n, etc.We reviewed the typical evaluation with labs, pelvic US and possible endometria l biopsy. Briefly discussed the options available for treatment (depending on the results of evaluation ).Pelvic ultrasound and labs ordered.Wi ll f/u with results and next steps in plan of care. [id number] Nathan Barfield MD [facility] [address] [address] 06/27/2025 10:18:03 06/27/2025 11:00:31 Abnormal uterine bleeding [id number] 9100 N93.9 [id number] Nathan Barfield MD [facility] [address] [address] 07/02/2025 10:08:51 07/02/2025 10:58:28 Postmenopausal bleeding [id number] N95.0 [id number] this patient is a 59-year-ol d female with postmenopa usal bleeding. Ultrasound revealed a very thickened endometriu m with vascularit y. We talked about the significan ce of this. Talked about the risk of malignancy . We agreed to proceed with hysterosco py D and C at the hospital. I spent over 30 minutes on her care in total including chart review, ultrasound interpreta tion, documentat ion. The patient understand s the procedure. The procedure was described to the patient in great detail. the patient also understand s the risks. The risks were also explained in detail. She understand s that injuries May occur during surgery. She understand s these injuries can result in hospitaliz ation, more surgery, and severe illness. She understand s there is risk of hemorrhage and infection. Health Concerns Section Related Observation LastModified by Organization Detai ls LastModified Time None Recorded Concern Status LastModified by Organization Details LastModified Time None Recorded Advance Directives Directive N: Payers Insurance Date Sequence Insurance Name Policy Number Policy Martinez Covered Member ID Martinez Member ID Guarantor Name 07/03/2025 1 [employer] [id number] Juanita Collins [id number] Juanita Collins Notes Date Note Type Note Provider Name and Address Organization Details Recorded Time 06/18/2025 text/html 59 y/o female presents with c/o dark brown bleeding. Patient states that the bleeding happened a week ago and lasted 2 days.Patient reports being post-menopausal since age 47 y/o.Denies pelvic pain, urinary frequency or urgency, dysuria, or GI sx.Denies taking any medications.Denies PMB in the past. ZHANNA MATHEWS NP [address], [place], [address], [facility] 06/18/2025 11:10:32 07/02/2025 text/html this patient is a 59-year-old female with postmenopausal bleeding. Ultrasound revealed a very thickened endometrium with vascularity. We talked about the significance of this. Talked about the risk of malignancy. We agreed to proceed with hysteroscopy D and C at the hospital. I spent over 30 minutes on her care in total including chart review, ultrasound interpretation, documentation. The patient understands the procedure. The procedure was described to the patient in great detail. the patient also understands the risks. The risks were also explained in detail. She understands that injuries May occur during surgery. She understands these injuries can result in hospitalization, more surgery, and severe illness. She understands there is risk of hemorrhage and infection. Nathan Barfield MD [address], [place], [address], [facility] 07/02/2025 10:56:49 OBGyn Episode Ob Episode Information Episode Created Date Number of Fetuses Patient Bloodtype Patient rh Status Prepregnancy Weight lbs Domestic Partner Domestic Partner Phone Father Name Auto Winder Status 06/18/20 25 1 CLOSED Fetus Data First Name Last Name Admitted to NICU Weight (g) Sex Living Outcome Pediatric Complications Fetus ID Race Codes Race Delivery Type 3430.06 [id number] M Full Term [id number] Vaginal Delivery Jeromy Calculation Initial Jeromy Date Initial Exam Date Initial Exam Provider Initial Ultrasound Date Last Menstrual Period Date Ultra Sound Weeks Gestation 0 Eighteen To Twenty Week Jeromy Update Ultra Sound Date Fundal Height At Umbil Quickening Date Ultra Sound Latest Weeks Gestation Final Jeromy Confirmed By Final Jeromy Confirmed Date Final Jeromy Date Ultra Sound Latest Days Gestation 0 0 Menstrual History Last Menstrual Date Menses Monthly On Bcp Conception Prior Menses Frequency Hcg Plus Date Menarche Onset Age Delivery Information Delivery Date Delivery Type Labor Anesthesia Weeks Gestation Incision Type Labor Labor Length Hrs Delivered By Post Complications Tubal Sterilization Discharge Date Comments 1 41 Discharge Information Feeding Method Contraceptive Method Maternal HG B and HCT Levels Ob Episode Information Episode Created Date Number of Fetuses Patient Bloodtype Patient rh Status Prepregnancy Weight lbs Domestic Partner Domestic Partner Phone Father Name Auto Winder Status 06/18/20 25 1 CLOSED Fetus Data First Name Last Name Admitted to NICU Weight (g) Sex Living Outcome Pediatric Complications Fetus ID Race Codes Race Delivery Type 3656.85 [id number] F Full Term [id number] Vaginal Delivery Jeromy Calculation Initial Jeromy Date Initial Exam Date Initial Exam Provider Initial Ultrasound Date Last Menstrual Period Date Ultra Sound Weeks Gestation 0 Eighteen To Twenty Week Jeromy Update Ultra Sound Date Fundal Height At Umbil Quickening Date Ultra Sound Latest Weeks Gestation Final Jeromy Confirmed By Final Jeromy Confirmed Date Final Jeromy Date Ultra Sound Latest Days Gestation 0 0 Menstrual History Last Menstrual Date Menses Monthly On Bcp Conception Prior Menses Frequency Hcg Plus Date Menarche Onset Age Delivery Information Delivery Date Delivery Type Labor Anesthesia Weeks Gestation Incision Type Labor Labor Length Hrs Delivered By Post Complications Tubal Sterilization Discharge Date Comments 8 40 Discharge Information Feeding Method Contraceptive Method Maternal HG B and HCT Levels
--- OUTSIDE RECORDS SUMMARY | 2025-07-06 03:02 | XMS_ITS | Continuity of Care Document ---
Author Organization [facility] Address [address] [place] [address] Care Team Providers Care Promotions Director Name Role Phone MIR COLONSIE Primary Care Provider [phone] Assessment No assessment recorded. Plan of Treatment Reminders Order Date Submit Date Provider Last Modified By Organization Details Last Modified Time Details Appointments SURG Hysterosc opy 2024 01:00P Tavo COLEMAN MD Not available Not available Not available SURG POST OP 2024 11:30A Tavo COLEMAN MD Not available Not available Not available Lab hormone panel, serum or plasma 2024 025 [facility] (Lab), [address], [place], [address], 06/25/2025 23:43:19 TSH, serum or plasma 2024 025 [facility] (Lab), [address], [place], [address], 06/25/2025 23:43:18 CBC w/ auto diff 2024 025 [facility] (Lab), [address], [place], [address], 06/25/2025 23:43:17 progester one, serum 2024 025 [facility] (Lab), [address] [place], [address], 06/25/2025 23:43:18 prolactin , serum 2024 025 [facility] (Lab), [address], [place], [address], 06/25/2025 23:43:19 testoster one free/test osterone total, ratio, serum 2024 025 [facility] (Lab), [address], [place], [address], 06/25/2025 23:43:19 dhea-sulf ate, serum 2024 025 [facility] (Lab), [address], [place], [address], 06/25/2025 23:43:18 CMP, serum or plasma 2024 025 [facility] (Lab), [address], [place], [address], 06/25/2025 23:43:17 HbA1c (hemoglob in A1c), blood 2024 025 [facility] (Lab), [address], [place], [address], 06/25/2025 23:43:19 pap, IG + HR HPV - HPV regardles s but if HPV is positive need subtyping 16,18/45 2024 025 [facility] (Lab), [address], [place], [address], 06/25/2025 23:43:20 Referral None recorded. Procedures None recorded. Surgeries None recorded. Imaging None recorded. Medication Orders None recorded. Patient TargetsNo targets recorded. Patient InstructionsNo instructions recorded. Reason for Referral None Reported. Results Created Date Observation Date Name Description Value Unit Range Abnormal Flag Note LastModifiedBy Organization Detail LastModifiedTime 06/18/20 25 06/18/2025 CBC W/DIF F WBC 9.6 10'3/ uL 3.5-10 .5 Not Available [facility] (Lab) [address], [place], [address], 06/25/2025 23:43:17 06/18/20 25 06/18/2025 CBC W/DIF F RBC 5.01 10'6/ uL (based on docume nted legal sex) 3.80-5 .20 Not Available [facility] (Lab) [address], [place], [address], 06/25/2025 23:43:17 06/18/20 25 06/18/2025 CBC W/DIF F HGB 15.0 g/dL (based on docume nted legal sex) 11.6-1 5.4 Not Available [facility] (Lab) [address], [place], [address], 06/25/2025 23:43:17 06/18/20 25 06/18/2025 CBC W/DIF F HCT 45.0 % (based on docume nted legal sex) 34.0-4 5.0 Not Available [facility] (Lab) [address], [place], [address], 06/25/2025 23:43:17 06/18/20 25 06/18/2025 CBC W/DIF F MCV 89.8 fL 80.0-9 9.0 Not Available [facility] (Lab) [address], [place], [address], 06/25/2025 23:43:17 06/18/20 25 06/18/2025 CBC W/DIF F MCH 29.9 pg 27.0-3 4.0 Not Available [facility] (Lab) [address] [place], [address], 06/25/2025 23:43:17 06/18/20 25 06/18/2025 CBC W/DIF F MCHC 33.3 g/dL 32.0-3 5.5 Not Available [facility] (Lab) [address], [place], [address], 06/25/2025 23:43:17 06/18/20 25 06/18/2025 CBC W/DIF F RDW 13.7 % 11.0-1 5.0 Not Available [facility] (Lab) [address] [facility], [place], [address], 06/25/2025 23:43:17 06/18/20 25 06/18/2025 CBC W/DIF F plt 249 10'3/ uL 150-40 0 Not Available [facility] (Lab) [address] [facility], [place], [address], 06/25/2025 23:43:17 06/18/20 25 06/18/2025 CBC W/DIF F MPV 13.4 fL 8.8-12 .1 high Not Available [facility] (Lab) [address] [facility], [place], [address], 06/25/2025 23:43:17 06/18/20 25 06/18/2025 CBC W/DIF F NRBC's 0.0 % 0.0 Not Available [facility] (Lab) [address] [facility], [place], [address], 06/25/2025 23:43:17 06/18/20 25 06/18/2025 CBC W/DIF F absolute NRBCs 0.0 10'3/ uL no refere nce range establ ished Not Available [facility] (Lab) [address] [facility], [place], [address], 06/25/2025 23:43:17 06/18/20 25 06/18/2025 CBC W/DIF F neutrophils 61.8 % 34.0-7 3.0 Not Available [facility] (Lab) [address] [facility], [place], [address], 06/25/2025 23:43:17 06/18/20 25 06/18/2025 CBC W/DIF F lymphocytes 30.8 % 15.0-5 0.0 Not Available [facility] (Lab) [address] [facility], [place], [address], 06/25/2025 23:43:17 06/18/20 25 06/18/2025 CBC W/DIF F monocytes 5.9 % 1.0-15 .0 Not Available [facility] (Lab) [address] [facility], [place], [address], 06/25/2025 23:43:17 06/18/20 25 06/18/2025 CBC W/DIF F eosinophils 0.9 % 0.0-8. 0 Not Available [facility] (Lab) [address] [facility], [place], [address], 06/25/2025 23:43:17 06/18/20 25 06/18/2025 CBC W/DIF F basophils 0.2 % 0.0-2. 0 Not Available [facility] (Lab) [address] [facility], [place], [address], 06/25/2025 23:43:17 06/18/20 25 06/18/2025 CBC W/DIF [...] separ ately if prese nt. Not Available [facility] (Lab) [address] [facility], [place], [address], 06/25/2025 23:43:17 06/18/20 25 06/18/2025 CBC W/DIF F absolute neutrophils 5.9 10'3/ uL 1.5-8. 0 Not Available [facility] (Lab) [address] [facility], [place], [address], 06/25/2025 23:43:17 06/18/20 25 06/18/2025 CBC W/DIF F absolute lymphocytes 2.9 10'3/ uL 1.0-4. 0 Not Available [facility] (Lab) [address] [facility], [place], [address], 06/25/2025 23:43:17 06/18/20 25 06/18/2025 CBC W/DIF F absolute monocytes 0.6 10'3/ uL 0.2-1. 0 Not Available [facility] (Lab) [address] [facility], [place], [address], 06/25/2025 23:43:17 06/18/20 25 06/18/2025 CBC W/DIF F absolute eosinophils 0.1 10'3/ uL 0.0-0. 6 Not Available [facility] (Lab) [address] [facility], [place], [address], 06/25/2025 23:43:17 06/18/20 25 06/18/2025 CBC W/DIF F absolute basophils 0.0 10'3/ uL 0.0-0. 3 Not Available [facility] (Lab) [address] [facility], [place], [address], 06/25/2025 23:43:17 06/18/20 25 06/18/2025 CBC W/DIF F absolute immature granulocytes 0.0 10'3/ uL 0.00-0 .10 Refer ence range s for nonbi nary/ inter sex or unspe cifie d gende r patie nts have not been estab lishe d. Pleas e refer to the elizabetho wing table for range s estab lishe d for cisge nder patie nts and evalu ate in the clini [place] anna xt of the indiv idual patie nt: https ://licha thompson book. nm.or g/gen derx Not Available [facility] (Lab) [address], [place], [address], 06/25/2025 23:43:17 06/18/20 25 06/18/2025 CMP(C OMPRE HENSI VE METAB OLIC PANEL ) sodium 143 mmol/ L 133-14 6 Not Available [facility] (Lab) [address] [facility], [place], [address], 06/25/2025 23:43:17 06/18/20 25 06/18/2025 CMP(C OMPRE HENSI VE METAB OLIC PANEL ) potassium 4.4 mmol/ L 3.5-5. 1 Not Available [facility] (Lab) [address] [facility], [place], [address], 06/25/2025 23:43:17 06/18/20 25 06/18/2025 CMP(C OMPRE HENSI VE METAB OLIC PANEL ) chloride 105 mmol/ L 98-107 Not Available [facility] (Lab) [address] [facility], [place], [address], 06/25/2025 23:43:17 06/18/20 25 06/18/2025 CMP(C OMPRE HENSI VE METAB OLIC PANEL ) carbon dioxide 26 mmol/ L 21-31 Not Available [facility] (Lab) [address] [facility], [place], [address], 06/25/2025 23:43:17 06/18/20 25 06/18/2025 CMP(C OMPRE HENSI VE METAB OLIC PANEL ) anion gap 12 mmol/ L 4-13 Not Available [facility] (Lab) [address] [place], [address], 06/25/2025 23:43:17 06/18/20 25 06/18/2025 CMP(C OMPRE HENSI VE METAB OLIC PANEL ) blood urea nitrogen 13 mg/dL 7-25 Not Available [facility] (Lab) [address] [facility], [place], [address], 06/25/2025 23:43:17 06/18/20 25 06/18/2025 CMP(C OMPRE HENSI VE METAB OLIC PANEL ) creatinine 0.75 mg/dL 0.60-1 .30 Not Available [facility] (Lab) [address] [facility], [place], [address], 06/25/2025 23:43:17 06/18/20 25 06/18/2025 CMP(C OMPRE HENSI VE METAB OLIC PANEL ) egfrcr (CKD-epi 2020) >90 mL/mi n/1.7 3_m2 >=60 Not Available [facility] (Lab) [address], [place], [address], 06/25/2025 23:43:17 06/18/20 25 06/18/2025 CMP(C OMPRE HENSI VE METAB OLIC PANEL ) calcium 10.1 mg/dL 8.3-10 .5 Not Available [facility] (Lab) [address], [place], [address], 06/25/2025 23:43:17 06/18/20 25 06/18/2025 CMP(C OMPRE HENSI VE METAB OLIC PANEL ) glucose 97 mg/dL 70-100 Not Available [facility] (Lab) [address], [place], [address], 06/25/2025 23:43:17 06/18/20 25 06/18/2025 CMP(C OMPRE HENSI VE METAB OLIC PANEL ) protein, total 7.6 g/dL 6.4-8. 3 Not Available [facility] (Lab) [address], [place], [address], 06/25/2025 23:43:17 06/18/20 25 06/18/2025 CMP(C OMPRE HENSI VE METAB OLIC PANEL ) albumin 4.7 g/dL 3.5-5. 0 Not Available [facility] (Lab) [address], [place], [address], 06/25/2025 23:43:17 06/18/20 25 06/18/2025 CMP(C OMPRE HENSI VE METAB OLIC PANEL ) ALT 21 units /L 9-43 Not Available [facility] (Lab) [address], [place], [address], 06/25/2025 23:43:17 06/18/20 25 06/18/2025 CMP(C OMPRE HENSI VE METAB OLIC PANEL ) alkaline phosphatase 104 units /L 34-104 Not Available [facility] (Lab) [address] [facility], [place], [address], 06/25/2025 23:43:17 06/18/20 25 06/18/2025 CMP(C OMPRE HENSI VE METAB OLIC PANEL ) AST 25 units /L 13-39 Not Available [facility] (Lab) [address] [facility], [place], [address], 06/25/2025 23:43:17 06/18/20 25 06/18/2025 CMP(C OMPRE HENSI VE METAB OLIC PANEL ) bilirubin, total 0.4 mg/dL 0.2-1. 2 Not Available [facility] (Lab) [address] [facility], [place], [address], 06/25/2025 23:43:17 06/18/20 25 06/18/2025 DHEA SULFA TE DHEA-sulfate 148 ug/dL Femal e Range s Age(y ) Range (ug/d L) 10-15 34-28 0 15-20 65-36 8 20-25 148-4 07 25-35 99-34 0 35-45 61-33 7 45-55 35-25 6 55-65 19-20 5 65-75 9-246 > 75 12-15 4 Not Available [facility] (Lab) [address] [facility], [place], [address], 06/25/2025 23:43:17 06/18/20 25 06/18/2025 TSH, REFLE X FREE T4 TSH 3.43 uIU/m L 0.30-5 .33 Not Available [facility] (Lab) [address] [facility], [place], [address], 06/25/2025 23:43:18 06/18/20 25 06/18/2025 PROGE STERO NE progesterone 0.20 NG/mL The test metho d is elect scout milum inesc ence immun oassa y perfo rmed on the [employer] Ozzy e801. Value s obtai tala with diffe rent assay metho ds by other labor atori es canno t be used inter [facility] . Femal e Proge stero ne Range s: Folli cular phase 0.06- 0.89 ng/mL Ovula tion phase 0.12- 12.00 ng/mL Lutea l phase 1.83- 23.90 ng/mL Postm enopa usal <0.05 -0.13 ng/mL Healt hy Pregn ant Women 1st Trime ster 11.0- 44.30 2nd Trime ster 25.40 -83.3 0 3rd Trime ster 58.70 -214. 00 Not Available [facility] (Lab) [address] [place], [address], 06/25/2025 23:43:18 06/18/20 25 06/18/2025 PROLA CTIN prolactin, total 9.00 NG/mL 4.79-2 3.30 The test metho d is elect scout [employer] Research[employer] inesc ence immun oassa y perfo rmed on the [employer] Ozzy e801. Value s obtai tala with diffe rent assay metho ds by other labor atori es canno t be used inter [facility] . Not Available [facility] (Lab) [address] [place], [address], 06/25/2025 23:43:19 06/18/20 25 06/18/2025 FSH, LH, ESTRA DIOL estradiol 30.3 pg/mL The test metho d is elect scout [employer] inesc ence immun oassa y perfo rmed on the [employer] Ozzy e801. Value s obtai tala with diffe rent assay metho ds by other labor atori es canno t be used inter [facility] . Femal e Estra diol Range s: Folli cular phase 12.4- 233 pg/mL Ovula tion phase 41.0- 398 pg/mL Lutea l phase 22.3- 341 pg/mL Postm enopa usal <5-13 8 pg/mL Healt hy Pregn ant Women 1st Trime ster 154-3 243 pg/mL 2nd Trime ster 1561- 53019 pg/mL 3rd Trime ster 8525- >3000 0 pg/mL Not Available [facility] (Lab) [address], [place], [address], 06/25/2025 23:43:19 06/18/20 25 06/18/2025 FSH, LH, ESTRA DIOL FSH 48.7 mIU/m L The test metho d is elect scout milum inesc ence immun oassa y perfo rmed on the [employer] e801. Value s obtai tala with diffe rent assay metho ds by other labor atori es canno t be used inter [facility] . Femal es Folli cular : 3.5-1 2.5 mIU/m L Ovula tion: 4.7-2 1.5 mIU/m L Lutea l: 1.7-7 .7 mIU/m L Postm enopa use: 25.8- 134.8 mIU/m L Not Available [facility] (Lab) [address] [facility], [place], [address], 06/25/2025 23:43:19 06/18/20 25 06/18/2025 FSH, LH, ESTRA DIOL LH 28.1 mIU/m L The test metho d is elect scout milum inesc ence immun oassa y perfo rmed on the [employer] e801. Value s obtai tala with diffe rent assay metho ds by other labor atori es canno t be used inter [facility] . Femal es Mid-F ollic ular: 2.4-1 2.6 mIU/m L Mid-C ycle: 14.0- 95.6 mIU/m L Mid-L uteal : 1.0-1 1.4 mIU/m L Postm enopa use: 7.7-5 8.5 mIU/m L Not Available [facility] (Lab) [address] [place], [address], 06/25/2025 23:43:19 06/18/20 25 06/18/2025 HEMOG LOBIN [...] >8.0% Actio n sugge sted Not Available [facility] (Lab) [address], [place], [address], 06/25/2025 23:43:19 06/18/20 25 06/18/2025 TESTO STERO NE, FREE( DIALY SIS) AND TOTAL (LC/M S/MS) testosterone , total 36 NG/dL 2-45 For addit ional infor iris rodgers e refer to http: //[facility] mishel darnell.que stdia gnost ics.c om/fa q/ Total Testo stero neLCM SMSFA Q165 (This link is being provi ded for infor serge galloway/ educa penelope l purpo ses only. ) This test was devel oped and its mei tical perfo rmanc e marisel cteri stics have been deter mined by [facility] [place], [place]. It has not been clear ed or appro diana by the U.S. Food and Drug Admin istra tion. This assay has been valid ated pursu ant to the CLIA regul ation s and is used for clini [place] purpo ses. Not Available [facility] (Lab) [address], [place], [address], 06/25/2025 23:43:19 06/18/20 25 06/18/2025 TESTO STERO NE, FREE( DIALY SIS) AND TOTAL (LC/M S/MS) testosterone , free 4.3 pg/mL 0.1-6. 4 This test was devel archana and its mei tical perfo rmanc e marisel cteri stics have been deter mined by [facility] [place], [place]. It has not been clear ed or appro diana by the U.S. Food and Drug Admin istra tion. This assay has been valid ated pursu ant to the CLIA regul ation s and is used for clini [place] purpo ses. Perfo rming Organ izati on Infor matio n: Site ID: AMD Name: [facility] tute Addre ss: [id number] [address] [place] Direc tor: Chacha Ventura MD PhD Not Available [facility] (Lab) [address] [facility], [place], [address], 06/25/2025 23:43:19 06/18/20 25 06/18/2025 IMAGE GUIDE D PAP AND HPV REGAR DLESS image guided Pap, HPV regardless of Pap result SEE RESULT S BELOW CASE REPOR T: Cytol ogy Gynec ologi [place] Repor t Case: [id number] Autho gordy g Provi myra: Indy amador, Zhanna , ANP, RUBBER FLAP CUTTER Colle cted: 06/18 1026 Order ing Locat ion: [place] [facility] Recei diana: 06/19 0157 First Scree n: Gary Carter ed, CT Speci men: Scree ro Pap - Image d, Cervi x STATE MENT OF ADEQU ACY: Satis facto ry for evalu ation Trans forma tion zone compo nent absen t ----- ----- ----- ----- ----- ----- ----- ----- ----- ----- ----- ----- ----- ----- ----- ----- ----- ---- FINAL DIAGN OSIS: Negat mario for Intra epith elial Lesio n or German villasenor (NIL) . 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 Not Available [facility] (Lab) [address], [place], [address], 06/25/2025 23:43:20 06/27/20 25 06/27/2025 US, pelvi s No observ ation record ed. [facility] [address], [place], [address], 06/27/2025 13:28:46 06/27/20 25 06/27/2025 US, trans vagin al No observ ation record ed. [facility] [address], [place], [address], 06/27/2025 13:28:56 06/27/20 25 06/27/2025 US, pelvi s No observ ation record ed. [email or web address] [address] [place] [address] 58, [place], [address], 06/27/2025 17:33:01 Result Notes None recorded. Problems Name Problem SNOMED Code Status Onset Date Resolution Date Notes Provider Name and Address Organization Details Recorded Time SNOMED CT Concept Active 2016 Encntr for general adult medical exam w/o abnormal findings;R ecorded Elsewhere: No Locatio n: 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: EHR Chroni c: N Practice ID: 0001 Billa ble Time: 01:15:00 PM Not Available [facility] 0 21:26:26 Screening for malignant neoplasm of rectum Active 2016 Encounter for screening for malignant neoplasm of rectum;Rec orded Elsewhere: No Locatio n: [facility]: EHR Chroni c: N Practice ID: 0001 Cresencio hills Time: 01:15:00 PM Not Available [facility] 0 21:26:26 Problem Notes None recorded. Procedures Surgical History Date Name Laterality Status Provider Name and Address Organization Details Recorded Time 05/14/20 25 Date of Last Mammogram completed [facility] 06/18/2025 10:24:32 04/25/20 21 Date of Last Pap Smear completed [facility] 06/18/2025 10:24:32 07/26/19 17 completed [facility] 06/18/2025 10:24:32 07/26/18 97 Cholecystectomy completed [facility] 06/18/2025 10:32:50 06/05/19 83 Tonsillectomy completed [facility] 06/18/2025 10:32:55 Colonoscopy completed [facility] 06/18/2025 10:32:31 Imaging Results None recorded. Procedure Notes None recorded. Medical Equipment None Reported. Allergies Allergen ID Allergen Name Allergen Category Reaction Reaction Severity Criticality Documentation Date Start Date Code Code System Note Provider Name and Address Organization Details Recorded Time Product containin g penicilli n (product) medicatio n hives Not available high 06/18/20252019 71299 8001 SNOMED Not Available [facility] - External Data Service - prod 03:12:37 41414 Penicilli n Not available hives moderate Not available 06/18/2025 12528 RxNorm [facility] 10:28:22 Medications Not known to be on any medication Vitals Date Recorded Body height Body mass index (BMI) Body weight Systolic And Diastolic Provider Name and Address Organization Details Last Updated DateTime 06/18/2025 170.18 cm 43 kg/m2 592933.18 g 134/84 mm[Hg] Yanna Unger [facility] 06/18/2025 10:34:24 Social History Question Answer Notes LastModified by Organizat ion Details LastModified Time Tobacco Smoking Status Current Every Day Smoker Yanna Unger [facility] 06/18/2025 10:32:02 Do You Have An Advance Directive? No [email or web address] Information n ot available 06/18/2025 Are You Blind Or Do You Have Difficulty Seeing? No [email or web address] Information n ot available 06/18/2025 What Is Your Level Of Caffeine Consumption? Moderate Information not available 06/18/2025 How Much Tobacco Do You Chew? None Information not available 06/18/2025 In The 14 Days Before Symptom Onset, Have You Had Close Contact With A Laboratory-confirm ed COVID-19 While That Case Was Ill? No [email or web address] Information n ot available 06/18/2025 In The 14 Days Before Symptom Onset, Have You Had Close Contact With A Person Who Is Under Investigation For COVID-19 While That Person Was Ill? No [email or web address] Information not available 06/18/2025 Have You Been To An Area Known To Be High Risk For COVID-19? No [email or web address] Information not available 06/18/2025 Are You Deaf Or Do You Have Serious Difficulty Hearing? No Information not available 06/18/2025 What Type Of Diet Are You Following? REGULAR [email or web address] Information n ot available 06/18/2025 What Is The Highest Grade Or Level Of School You Have Completed Or The Highest Degree You Have Received? [id number] [email or web address] Information not available 06/18/2025 Are There Any Guns Present In Your Home? No Information not available 06/18/2025 Do You Use Protection During Sex? No [email or web address] Information not available 06/18/2025 Do You Use Your Seat Belt Or Car Seat Routinely? Yes [email or web address] Information not available 06/18/2025 Are You Sexually Active? Yes Information not available 06/18/2025 Do You Have Smoke And Carbon Monoxide Detectors In Your Home? Yes [email or web address] Information not available 06/18/2025 At What Age Did You Start Smoking Tobacco? 18 Information not available 06/18/2025 How Much Tobacco Do You Smoke? 1 PPW [email or web address] Information not available 06/18/2025 Do You Use Sunscreen Routinely? Yes [email or web address] Information not available 06/18/2025 How Many Years Have You Smoked Tobacco? 30 [email or web address] Information not available 06/18/2025 Have You Used IV Drugs? No Information not available 06/18/2025 Do You Have Difficulty Walking Or Climbing Stairs? No Information not available 06/18/2025 Sex: Unknown Functional Status Question Answer Note LastModified by Organizat ion Details LastModified Time Do you use any illicit or recreational drugs? No [email or web address] Information not available 06/18/2025 What is your level of alcohol consumption? Occasional [email or web address] Information not available 06/18/2025 Are you currently employed? Yes [email or web address] Information not available 06/18/2025 Are you able to care for yourself independently? 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 No [email or web address] Information not available 06/18/2025 What is your exercise level? Occasional [email or web address] Information not available 06/18/2025 Mental Status Question Answer Note LastModified by Organization D etails LastModified Time Do you feel stressed (tense, restless, nervous, or anxious, or unable to sleep at night)? [id number] [email or web address] Information not available 06/18/2025 Family History Relationship Description Onset Age of this Age Resolved Age Notes LastModified by Organization Details LastModified Time Unspecified Relation Malignant neoplasm of cervix uteri niece Not available 10:31:52 Medical History Condition Response [...] ICD10 Code Diagnosis IMO Codes Diagnosis Note [id number] ZHANNA MATHEWS NP [place] [address] [address] 06/18/2025 10:17:38 06/18/2025 11:14:01 Abnormal uterine bleeding [id number] N93.9 [id number] The patient and I discussed the various causes of abnormal uterine bleeding, including polyps, fibroids, hyperplasi a, atypia, anovulatio n, etc.We reviewed the typical evaluation with labs, pelvic US and possible endometria l biopsy. Briefly discussed the options available for treatment (depending on the results of evaluation ).Pelvic ultrasound and labs ordered.Wi ll f/u with results and next steps in plan of care. Health Concerns Section Related Observation LastModified by Organization Detai ls LastModified Time None Recorded Concern Status LastModified by Organization Details LastModified Time None Recorded Payers Encounter Date Sequence Insurance Name Policy Number Policy Martinez Covered Member ID Martinez Member ID Guarantor Name 06/18/2025 1 [id number] ([id number] Juanita Collins [id number] Juanita Collins Notes Date Note Type Note Provider Name and Address Organization Details Recorded Time 06/18/2025 text/html 59 y/o female presents with c/o dark brown bleeding. Patient states that the bleeding happened a week ago and lasted 2 days.Patient reports being post-menopausal since age 47 y/o.Denies pelvic pain, urinary frequency or urgency, dysuria, or GI sx.Denies taking any medications.Efrain es PMB in the past. ZHANNA MATHEWS NP [address], [place], [address], [facility] 06/18/2025 11:10:32 OBGyn Episode No OBEpisode recorded.
--- OUTSIDE RECORDS SUMMARY | 2025-07-06 03:02 | XMS_ITS | Encounter Summary ---
Author Organization [facility] Address [address] [place] [address] Care Team Providers Care Revenue Tax Specialist Name Role Phone Marge Jacques NP Primary Care Provider Encounter Details Date Type Department Care Team (Late Contact Info) Description 05/07/2025 Results Follow-Up [facility] [id number] [place] [id number] [place] [address] [facility] [address] [place] [address] MG SCREENING W DELMY MELVI DIGI Social History Tobacco Use Types Packs/Day Years Used Date Smoking Tobacco: Every Day Cigarettes 0.3 30 Smokeless Tobacco: Never Alcohol Use Standard Drinks/Week Comments Yes 2.7 (1 standard drink = 0.6 oz p ure alcohol) Socially and seldomly PHQ-2 Answer Date Recorded Patient Health Questionnaire-2 Score 0 02/28/2025 Comments No Sex and Gender Information Value Date Recorded Sex Assigned at Not on file Legal Sex Female 8:20 PM CDT Gender Identity Not on file Sexual Orientation Not on file documented as of this encounter Plan of Treatment Upcoming Encounters Date Type Department Care Team (Late Contact Info) Description 03/05/2026 8:00 AM CDT Office Visit [facility] Medicine [address] [address] [place] [address] [facility] [address] [place] [address] documented as of this encounter Visit Diagnoses Not on filedocumented in this encounter Additional Health Concerns Assessment Noted Time PHQ-9 Depression Total Score: 2 02/29/20 25 2:08 PM CDT documented as of this encounter Care Teams Revenue Tax Specialist Relationship Specialty [place] [address] [address] [facility] [address] [place] [address] PCP - General Nurse Practitioner Family 01/12/25 documented as of this encounter
--- OUTSIDE RECORDS SUMMARY | 2025-07-06 03:02 | XMS_ITS | Continuity of Care Document ---
Author Organization [facility] Address [address] [place] [address] Care Team Providers Care Assistant Analyst Name Role Phone KARUNA COLON Primary Care Provider [phone] Assessment No assessment recorded. Plan of Treatment [...] curettage with hysterosc opy (SURG) 2024 025 [email or web address] [facility], [facility] [address], [address], 07/02/2025 13:08:52 Imaging None recorded. Medication Orders None recorded. Patient TargetsNo targets recorded. Patient InstructionsNo instructions recorded. Reason for Referral None Reported. Results Created Date Observation Date Name Description Value Unit Range Abnormal Flag Note LastModifiedBy Organization Detail LastModifiedTime 06/18/2006/18/2025 CBC W/DIF F WBC 9.6 10'3/ uL 3.5-10 .5 Not Available [facility] (Lab) [address] [facility], [place], [address], 06/25/2025 23:43:17 06/18/20 25 06/18/2025 CBC W/DIF F RBC 5.01 10'6/ uL (based on docume nted legal sex) 3.80-5 .20 Not Available [facility] (Lab) [address], [place], [address], 06/25/2025 23:43:17 06/18/20 25 06/18/2025 CBC W/DIF F HGB 15.0 g/dL (based on docume nted legal sex) 11.6-1 5.4 Not Available [facility] (Lab) [address], [place], [address], 06/25/2025 23:43:17 06/18/20 25 06/18/2025 CBC W/DIF F HCT 45.0 % (based on docume nted legal sex) 34.0-4 5.0 Not Available [facility] (Lab) [address], [place], [address], 06/25/2025 23:43:17 06/18/20 25 06/18/2025 CBC W/DIF F MCV 89.8 fL 80.0-9 9.0 Not Available [facility] (Lab) [address], [place], [address], 06/25/2025 23:43:17 06/18/20 25 06/18/2025 CBC W/DIF F MCH 29.9 pg 27.0-3 4.0 Not Available [facility] (Lab) [address], [place], [address], 06/25/2025 23:43:17 06/18/20 25 06/18/2025 CBC W/DIF F MCHC 33.3 g/dL 32.0-3 5.5 Not Available [facility] (Lab) [address] [place], [address], 06/25/2025 23:43:17 06/18/20 25 06/18/2025 CBC W/DIF F RDW 13.7 % 11.0-1 5.0 Not Available [facility] (Lab) [address] [place], [address], 06/25/2025 23:43:17 06/18/20 25 06/18/2025 CBC W/DIF F plt 249 10'3/ uL 150-40 0 Not Available [facility] (Lab) [address] [facility], [place], [address], 06/25/2025 23:43:17 06/18/20 25 06/18/2025 CBC W/DIF F MPV 13.4 fL 8.8-12 .1 high Not Available [facility] (Lab) [address] [facility], [place], [address], 06/25/2025 23:43:17 06/18/20 25 06/18/2025 CBC W/DIF F NRBC's 0.0 % 0.0 Not Available [facility] (Lab) [address] [facility], [place], [address], 06/25/2025 23:43:17 06/18/20 25 06/18/2025 CBC W/DIF F absolute NRBCs 0.0 10'3/ uL no refere nce range establ ished Not Available [facility] (Lab) [address] [facility], [place], [address], 06/25/2025 23:43:17 06/18/20 25 06/18/2025 CBC W/DIF F neutrophils 61.8 % 34.0-7 3.0 Not Available [facility] (Lab) [address] [facility], [place], [address], 06/25/2025 23:43:17 06/18/20 25 06/18/2025 CBC W/DIF F lymphocytes 30.8 % 15.0-5 0.0 Not Available [facility] (Lab) [address] [facility], [place], [address], 06/25/2025 23:43:17 06/18/20 25 06/18/2025 CBC W/DIF F monocytes 5.9 % 1.0-15 .0 Not Available [facility] (Lab) [address] [facility], [place], [address], 06/25/2025 23:43:17 06/18/20 25 06/18/2025 CBC W/DIF F eosinophils 0.9 % 0.0-8. 0 Not Available [facility] (Lab) [address] [facility], [place], [address], 06/25/2025 23:43:17 06/18/20 25 06/18/2025 CBC W/DIF F basophils 0.2 % 0.0-2. 0 Not Available [facility] (Lab) [address] [facility], [place], [address], 06/25/2025 23:43:17 06/18/20 25 06/18/2025 CBC W/DIF [...] separ ately if prese nt. Not Available [facility] (Lab) [address] [facility], [place], [address], 06/25/2025 23:43:17 06/18/20 25 06/18/2025 CBC W/DIF F absolute neutrophils 5.9 10'3/ uL 1.5-8. 0 Not Available [facility] (Lab) [address] [facility], [place], [address], 06/25/2025 23:43:17 06/18/20 25 06/18/2025 CBC W/DIF F absolute lymphocytes 2.9 10'3/ uL 1.0-4. 0 Not Available [facility] (Lab) [address] [facility], [place], [address], 06/25/2025 23:43:17 06/18/20 25 06/18/2025 CBC W/DIF F absolute monocytes 0.6 10'3/ uL 0.2-1. 0 Not Available [facility] (Lab) [address] [facility], [place], [address], 06/25/2025 23:43:17 06/18/20 25 06/18/2025 CBC W/DIF F absolute eosinophils 0.1 10'3/ uL 0.0-0. 6 Not Available [facility] (Lab) [address] [facility], [place], [address], 06/25/2025 23:43:17 06/18/20 25 06/18/2025 CBC W/DIF F absolute basophils 0.0 10'3/ uL 0.0-0. 3 Not Available [facility] (Lab) [address] [facility], [place], [address], 06/25/2025 23:43:17 06/18/20 25 06/18/2025 CBC W/DIF F absolute immature granulocytes 0.0 10'3/ uL 0.00-0 .10 Refer ence range s for nonbi nary/ inter sex or unspe cifie d gende r patie nts have not been estab lishe d. Plepam e refer to the elizabetho wing table for range s estab lishe d for cisge nder patie nts and evalu ate in the clini [place] anna xt of the indiv idual patie nt: https ://la jay book. nm.or g/gen derx Not Available [facility] (Lab) [address], [place], [address], 06/25/2025 23:43:17 06/18/20 25 06/18/2025 CMP(C OMPRE HENSI VE METAB OLIC PANEL ) sodium 143 mmol/ L 133-14 6 Not Available [facility] (Lab) [address] [facility], [place], [address], 06/25/2025 23:43:17 06/18/20 25 06/18/2025 CMP(C OMPRE HENSI VE METAB OLIC PANEL ) potassium 4.4 mmol/ L 3.5-5. 1 Not Available [facility] (Lab) [address] [facility], [place], [address], 06/25/2025 23:43:17 06/18/20 25 06/18/2025 CMP(C OMPRE HENSI VE METAB OLIC PANEL ) chloride 105 mmol/ L 98-107 Not Available [facility] (Lab) [address] [facility], [place], [address], 06/25/2025 23:43:17 06/18/20 25 06/18/2025 CMP(C OMPRE HENSI VE METAB OLIC PANEL ) carbon dioxide 26 mmol/ L 21-31 Not Available [facility] (Lab) [address] [facility], [place], [address], 06/25/2025 23:43:17 06/18/20 25 06/18/2025 CMP(C OMPRE HENSI VE METAB OLIC PANEL ) anion gap 12 mmol/ L 4-13 Not Available [facility] (Lab) [address] [facility], [place], [address], 06/25/2025 23:43:17 06/18/20 25 06/18/2025 CMP(C OMPRE HENSI VE METAB OLIC PANEL ) blood urea nitrogen 13 mg/dL 7-25 Not Available [facility] (Lab) [address] [facility] [facility], [place], [address], 06/25/2025 23:43:17 06/18/20 25 06/18/2025 CMP(C OMPRE HENSI VE METAB OLIC PANEL ) creatinine 0.75 mg/dL 0.60-1 .30 Not Available [facility] (Lab) [address] [facility], [place], [address], 06/25/2025 23:43:17 06/18/20 25 06/18/2025 CMP(C OMPRE HENSI VE METAB OLIC PANEL ) egfrcr (CKD-epi 2020) >90 mL/mi n/1.7 3_m2 >=60 Not Available [facility] (Lab) [address] [facility], [place], [address], 06/25/2025 23:43:17 06/18/20 25 06/18/2025 CMP(C OMPRE HENSI VE METAB OLIC PANEL ) calcium 10.1 mg/dL 8.3-10 .5 Not Available [facility] (Lab) [address] [facility], [place], [address], 06/25/2025 23:43:17 06/18/20 25 06/18/2025 CMP(C OMPRE HENSI VE METAB OLIC PANEL ) glucose 97 mg/dL 70-100 Not Available [facility] (Lab) [address] [facility], [place], [address], 06/25/2025 23:43:17 06/18/20 25 06/18/2025 CMP(C OMPRE HENSI VE METAB OLIC PANEL ) protein, total 7.6 g/dL 6.4-8. 3 Not Available [facility] (Lab) [address] [facility], [place], [address], 06/25/2025 23:43:17 06/18/20 25 06/18/2025 CMP(C OMPRE HENSI VE METAB OLIC PANEL ) albumin 4.7 g/dL 3.5-5. 0 Not Available [facility] (Lab) [address] [facility], [place], [address], 06/25/2025 23:43:17 06/18/20 25 06/18/2025 CMP(C OMPRE HENSI VE METAB OLIC PANEL ) ALT 21 units /L 9-43 Not Available [facility] (Lab) [address] [place], [address], 06/25/2025 23:43:17 06/18/20 25 06/18/2025 CMP(C OMPRE HENSI VE METAB OLIC PANEL ) alkaline phosphatase 104 units /L 34-104 Not Available [facility] (Lab) [address] [facility], [place], [address], 06/25/2025 23:43:17 06/18/20 25 06/18/2025 CMP(C OMPRE HENSI VE METAB OLIC PANEL ) AST 25 units /L 13-39 Not Available [facility] (Lab) [address] [facility], [place], [address], 06/25/2025 23:43:17 06/18/20 25 06/18/2025 CMP(C OMPRE HENSI VE METAB OLIC PANEL ) bilirubin, total 0.4 mg/dL 0.2-1. 2 Not Available [facility] (Lab) [address] [facility] [facility], [place], [address], 06/25/2025 23:43:17 06/18/20 25 06/18/2025 DHEA SULFA TE DHEA-sulfate 148 ug/dL Femal e Range s Age(y ) Range (ug/d L) 10-15 34-28 0 15-20 65-36 8 20-25 148-4 07 25-35 99-34 0 35-45 61-33 7 45-55 35-25 6 55-65 19-20 5 65-75 9-246 > 75 12-15 4 Not Available [facility] (Lab) [address] [facility], [place], [address], 06/25/2025 23:43:17 06/18/20 25 06/18/2025 TSH, REFLE X FREE T4 TSH 3.43 uIU/m L 0.30-5 .33 Not Available [facility] (Lab) [address] [facility], [place], [address], 06/25/2025 23:43:18 06/18/20 25 06/18/2025 PROGE STERO [...] Trime ster 58.70 -214. 00 Not Available [facility] (Lab) [address] [place], [address], 06/25/2025 23:43:18 06/18/20 25 06/18/2025 PROLA CTIN prolactin, total 9.00 NG/mL 4.79-2 3.30 The test metho d is elect scout milum inesc ence immun oassa y perfo rmed on the Scout Ozzy e801. Value s obtai tala with diffe rent assay metho ds by other labor atori es canno t be used inter casanova eably . Not Available [facility] (Lab) [address] [place], [address], 06/25/2025 23:43:19 06/18/20 25 06/18/2025 FSH, LH, ESTRA DIOL estradiol 30.3 pg/mL The test metho d is elect scout milum inesc ence immun oassa y perfo rmed on the Scout Ozzy e801. Value s obtai tala with diffe rent assay metho ds by other labor atori es canno t be used inter casanova eably . Femal e Estra diol Range s: Folli cular phase 12.4- 233 pg/mL Ovula tion phase 41.0- 398 pg/mL Lutea l phase 22.3- 341 pg/mL Postm enopa usal <5-13 8 pg/mL Healt hy Pregn ant Women 1st Trime ster 154-3 243 pg/mL 2nd Trime ster 1561- 11171 pg/mL 3rd Trime ster 8525- >3000 0 pg/mL Not Available [facility] (Lab) [address] [place], [address], 06/25/2025 23:43:19 06/18/20 25 06/18/2025 FSH, LH, ESTRA DIOL FSH 48.7 mIU/m L The test metho d is elect scout milum inesc ence immun oassa y perfo rmed on the Scout Ozzy e801. Value s obtai tala with diffe rent assay metho ds by other labor atori es canno t be used inter [facility] . Femal es Folli cular : 3.5-1 2.5 mIU/m L Ovula tion: 4.7-2 1.5 mIU/m L Lutea l: 1.7-7 .7 mIU/m L Postm enopa use: 25.8- 134.8 mIU/m L Not Available [facility] (Lab) [address], [place], [address], 06/25/2025 23:43:19 06/18/20 25 06/18/2025 FSH, LH, ESTRA DIOL LH 28.1 mIU/m L The test metho d is elect scout milum inesc ence immun oassa y perfo rmed on the Scout Ozzy e801. Value s obtai tala with diffe rent assay metho ds by other labor atori es canno t be used inter [facility] . Femal es Mid-F ollic ular: 2.4-1 2.6 mIU/m L Mid-C ycle: 14.0- 95.6 mIU/m L Mid-L uteal : 1.0-1 1.4 mIU/m L Postm enopa use: 7.7-5 8.5 mIU/m L Not Available [facility] (Lab) [address] [place], [address], 06/25/2025 23:43:19 06/18/20 25 06/18/2025 HEMOG LOBIN A1C hemoglobin A1C 5.6 % 4.0-5. 6 The Ameri can Diabe jeremías Ass[employer] iatio n recom mends that a prima ry goal of thertalya calixto be a HBA1C of < 7% and that physi cians shoul d reeva luate the treat ment regim en in patie nts with HBA1C value s consi stent ly > 8%. <5.7% Morenita l 5.7 - 6.4% Incre ased risk for diabe jeremías >=6.5 % Diagn ostic of diabe jeremías <7.0% Goal of thera py >8.0% Actio carie sue sted Not Available [facility] (Lab) [address] [facility], [place], [address], 06/25/2025 23:43:19 06/18/20 25 06/18/2025 TESTO STERO NE, FREE( DIALY SIS) AND TOTAL (LC/M S/MS) testosterone , total 36 NG/dL 2-45 For addit ional infor iris rodgers e refer to http: //[facility] mishel darnell.que stdia gnost ics.c om/fa q/ Total Testo stero neLCM SMSFA Q165 (This link is being provi ded for infor serge galloway/ educa penelope l purpo ses only. ) This test was devel oped and its mei tical perfo rmanc e marisel cteri stics have been deter mined by [facility] [employer] [facility] Jermaine ls [facility], [place]. It has not been clear ed or appro diana by the U.S. Food and Drug Admin istra tion. This assay has been valid ated pursu ant to the CLIA regul ation s and is used for clini [place] purpo ses. Not Available [facility] (Lab) [address], [place], [address], 06/25/2025 23:43:19 06/18/20 25 06/18/2025 TESTO STERO NE, FREE( DIALY SIS) AND TOTAL (LC/M S/MS) testosterone , free 4.3 pg/mL 0.1-6. 4 This test was devel oped and its mei tical perfo rmanc e marisel cteri stics have been deter mined by [employer] [facility] Jermaine ls [employer] [facility] [place], [place]. It has not been clear ed or appro diana by the U.S. Food and Drug Admin istra tion. This assay has been valid ated pursu ant to the CLIA regul ation s and is used for clini [place] purpo ses. Perfo rming Organ izati on Infor matdominga n: Site ID: AMD Name: [facility] silvia Alonzoi becky Addre ss: [id number] [place], [place] Direc tor: Chacha Ventura MD PhD Not Available [facility] (Lab) [address] [facility], [place], [address], 06/25/2025 23:43:19 06/18/20 25 06/18/2025 IMAGE GUIDE D PAP AND HPV REGAR DLESS image guided Pap, HPV regardless of Pap result SEE RESULT S BELOW CASE REPOR T: Cytol ogy Gynec ologi madison Repor t Case: [id number] Autho gordy g Provi myra: Dermo dy, Zhanna , ANP, FRONT WORKER Colle cted: 06/18 1026 Order ing Locat ion: [place] [facility] Recei diana: 06/19 0157 First Scree n: Gary Carter ed, CT Speci men: Stuartphilip starr Pap - Image d, Cervi x [...] Carter ed, CT on 2024 at 2239 BILINGUAL PATIENT SUPPORT CASEWORKER ----- ----- ----- ----- ----- ----- ----- [...] is recom cyn d, as clini hector storm nted. Not Available [facility] (Lab) [address], [place], [address], 06/25/2025 23:43:20 06/27/20 25 06/27/2025 US, pelvi s No observ ation record ed. [facility] [address], [place], [address], 06/27/2025 13:28:46 06/27/20 25 06/27/2025 US, trans vagin al No observ ation record ed. [facility] [address], [place], [address], 06/27/2025 13:28:56 06/27/20 25 06/27/2025 US, pelvi s No observ ation record ed. Cristina [address] [place] [address], [place], [address], 06/27/2025 17:33:01 Result Notes None recorded. Problems Name Problem SNOMED Code Status Onset Date Resolution Date Notes Provider Name and Address Organization Details Recorded Time SNOMED CT Concept Active 2016 Encntr for general adult medical exam w/o abnormal findings;R ecorded Elsewhere: No Locatio n: [facility] rce: EHR Chroni c: N Practice ID: [id number] Billa ble Time: 01:15:00 PM Not Available [facility] 0 21:[facility]:[address] Concept Active 2016 Encntr for toddler guide exam (general) (routine) w/o abn findings;R ecorded Elsewhere: No Locatio n: [facility] rce: EHR Chroni c: N Practice ID: 0001 Billa ble Time: 01:15:00 PM Not Available [facility] 0 21:26:26 Screening for malignant neoplasm of rectum Active 2016 Encounter for screening for malignant neoplasm of rectum;Rec orded Elsewhere: No Locatio n: [facility] rce: EHR Chroni c: N Practice ID: 0001 Billa ble Time: 01:15:00 PM Not Available [facility] 0 21:26:26 Problem Notes None recorded. Procedures Surgical History Date Name Laterality Status Provider Name and Address Organization Details Recorded Time 05/14/20 25 Date of Last Mammogram completed [facility] 06/18/2025 10:24:32 04/25/20 21 Date of Last Pap Smear completed [facility] 06/18/2025 10:24:32 07/26/[address] [facility] 06/18/2025 10:24:32 07/26/18 [address] [facility] 06/18/2025 10:32:50 06/05/19 [address] [facility] 06/18/2025 10:32:[address] [facility] 06/18/2025 10:32:31 Imaging Results None recorded. Procedure Notes None recorded. Medical Equipment None Reported. Allergies Allergen ID Allergen Name Allergen Category Reaction Reaction Severity Criticality Documentation Date Start Date Code Code System Note Provider Name and Address Organization Details Recorded Time 03091 Product containin g penicilli n (product) medicatio n hives Not available high 06/18/20252019 63850 8001 SNOMED Not Available [facility] - External Data Service - prod 03:12:37 30831 Penicilli n Not available hives moderate Not available 06/18/2025 90292 RxNorm [facility] 10:28:22 Medications Not known to be on any medication Vitals Date Recorded Body height Body mass index (BMI) Body weight Systolic And Diastolic Provider Name and Address Organization Details Last Updated DateTime 07/02/2025 170.18 cm 42.9 kg/m2 417327.31 g 172/92 mm[Hg] Katiana Chahal [facility] 07/02/2025 10:24:38 Social History Question Answer Notes LastModified by Organizat ion Details LastModified Time Tobacco Smoking Status Current Every Day Smoker [facility] 06/18/2025 10:32:02 Do You Have An Advance Directive? No Information n ot available 06/18/2025 Are You Blind Or Do You Have Difficulty Seeing? No [email or web address] Information n ot available 06/18/2025 What Is Your Level Of Caffeine Consumption? Moderate [email or web address] Information not available 06/18/2025 How Much Tobacco Do You Chew? None [email or web address] Information not available 06/18/2025 In The 14 Days Before Symptom Onset, Have You Had Close Contact With A Laboratory-confirm ed COVID-19 While That Case Was Ill? No Information n ot available 06/18/2025 In The 14 Days Before Symptom Onset, Have You Had Close Contact With A Person Who Is Under Investigation For COVID-19 While That Person Was Ill? No [email or web address] Information not available 06/18/2025 Have You Been To An Area Known To Be High Risk For COVID-19? No Information not available 06/18/2025 Are You Deaf Or Do You Have Serious Difficulty Hearing? No [email or web address] Information not available 06/18/2025 What Type Of Diet Are You Following? REGULAR [email or web address] Information n ot available 06/18/2025 What Is The Highest Grade Or Level Of School You Have Completed Or The Highest Degree You Have Received? [id number] [email or web address] Information not available 06/18/2025 Are There Any Guns Present In Your Home? No [email or web address] Information not available 06/18/2025 Do You Use Protection During Sex? No [email or web address] Information not available 06/18/2025 Do You Use Your Seat Belt Or Car Seat Routinely? Yes Information not available 06/18/2025 Are You Sexually Active? Yes [email or web address] Information not available 06/18/2025 Do You Have Smoke And Carbon Monoxide Detectors In Your Home? Yes [email or web address] Information not available 06/18/2025 At What Age Did You Start Smoking Tobacco? 18 [email or web address] Information not available 06/18/2025 How Much Tobacco Do You Smoke? 1 PPW [email or web address] Information not available 06/18/2025 Do You Use Sunscreen Routinely? Yes Information not available 06/18/2025 How Many Years Have You Smoked Tobacco? 30 [email or web address] Information not available 06/18/2025 Have You Used IV Drugs? No Information not available 06/18/2025 Do You Have Difficulty Walking Or Climbing Stairs? No [email or web address] Information not available 06/18/2025 Sex: Unknown Functional Status Question Answer Note LastModified by Organizat ion Details LastModified Time Do you use any illicit or recreational drugs? No Information not available 06/18/2025 What is your level of alcohol consumption? Occasional [email or web address] Information not available 06/18/2025 Are you currently employed? Yes [email or web address] Information not available 06/18/2025 Are you able to care for yourself independently? Yes Information not available 06/18/2025 What is your occupation? [employer] Information not available 06/18/2025 Do you have difficulty dressing, bathing, grooming, or toileting? No [email or web address] Information not available 06/18/2025 What is your exercise level? Occasional [email or web address] Information not available 06/18/2025 Mental Status Question Answer Note LastModified by Organization D etails LastModified Time Do you feel stressed (tense, restless, nervous, or anxious, or unable to sleep at night)? [id number] [email or web address] Information not available 06/18/2025 Family History Relationship Description Onset Age of this Age Resolved Age Notes LastModified by Organization Details LastModified Time Unspecified Relation Malignant neoplasm of cervix uteri niece [email or web address] Not available 10:31:52 Medical History Condition Response [...] ICD10 Code Diagnosis IMO Codes Diagnosis Note [id number] ZHANNA MATHEWS NP [facility] [address],[facility] [place] [address] 06/18/2025 10:17:38 06/18/2025 11:14:01 Abnormal uterine bleeding [id number] 9100 N93.9 [id number] The patient and I discussed the various causes of abnormal uterine bleeding, including polyps, fibroids, hyperplasi a, atypia, anovulatio n, etc.We reviewed the typical evaluation with labs, pelvic US and possible endometria l biopsy. Briefly discussed the options available for treatment (depending on the results of evaluation ).Pelvic ultrasound and labs ordered.Wi ll f/u with results and next steps in plan of care. [id number] Nathan Barfield MD [facility] [address],[place] [address] 06/27/2025 10:18:03 06/27/2025 11:00:31 Abnormal uterine bleeding [id number] 9100 N93.9 [id number] Nathan Barfield MD [facility] [address] [address] 07/02/2025 10:08:51 07/02/2025 10:58:28 Postmenopausal bleeding [id number] N95.0 [id number] this patient is a 59-year-ol d female [...] Member ID Martinez Member ID Guarantor Name 07/02/2025 1 [employer] [id number] Juanita Collins [id number] 85 Juanita Collins Notes Date Note Type Note Provider Name and Address Organization Details Recorded Time 07/02/2025 text/html this patient is a 59-year-old [...] infection. Nathan Barfield MD [address], [place], [address], [facility] 07/02/2025 10:56:49 OBGyn Episode No OBEpisode recorded.
--- OUTSIDE RECORDS SUMMARY | 2025-07-06 03:02 | XMS_ITS | Clinical Summary ---
Author Organization [facility] Address [address] [place] [id number] Care Team Providers Care Information Services Assistant Name Role Phone Karuna Jacques NP Primary Care Provider Allergies Active Allergy Reactions Criticality Noted Date Comments Penicillins Hives High 01/04/2020 Medications vitamin D3, cholecalciferol, (VITAMIN D) 1000 UNIT Tab tabletIndication s:Low serum vitamin D May take 7477-8109 units daily OTC 30 tablet 2 01/12/2020 Active Magnesium Oxide 500 MG TabIndications:D isequilibrium Take 500 mg by mouth daily. 30 tablet 11 05/12/2021 Active Active Problems Problem Noted Date Diagnosed Date Vitamin D deficiency 02/28/2025 Cigarette nicotine dependenc e with other nicotine-induced disorder 02/28/2025 Mixed hyperlipidemia 02/28/2025 Morbid obesity with BMI of 40.0-44.9, adult 08/0 12/2024 Vertigo 04/10/2021 Tinnitus of both ears 04/10/2021 Sensorineural hearing loss (SNHL) of both ears 0 12/31/2020 Encounters Date Type Department Care Team Description 05/31/2025 Telephone [facility] Family & Internal Medicine [id number] [place] [address] Karuna Jacques NP Lab Order 05/30/2025 Orders Only [facility] Family & Internal Medicine [address] [address] Karuna Jacques NP 05/07/2025 Orders Only [facility] Family & Internal Medicine [facility] [address] [place] [address] Karuna Jacques NP 05/07/2025 Results Follow-Up [facility] [address] [place] [address] Karuna Jacques NP MG SCREENING W DELMY MELVI DIGI 05/03/2025 7:46 AM CDT - 05/03/2025 11:59 PM CDT Hospital Encounter [facility] [address] [place] [address] Karuna Jacques NP Discharge Disposition: Home or Self Care (Routine Discharge) 05/03/2025 Travel from Last 3 Months Immunizations Immunization Administration Dates Next Due MODERNA COVID-19 (12+) MRNA, LNP-S, PF, 100 MCG/ 0.5 ML DOSE 10/30/2020,10/02/2020 Family History Medical History Relation Comments Cancer Brother Early Brother Cancer Father Cancer Maternal Aunt Hypertension Mother Breast Cancer Paternal Aunt 1 70's Breast Cancer Paternal Aunt 2 70's Relation Status Comments Brother Father Alive Maternal Aunt Mother Alive Paternal Aunt 1 Alive Paternal Aunt 2 Alive Paternal Grandfather Social History Tobacco Use Types Packs/Day Years Used Date Smoking Tobacco: Every Day Cigarettes 0.3 30 Smokeless Tobacco: Never Tobacco Cessation:Ready to Q uit: Yes; Counseling Given: Yes Alcohol Use Standard Drinks/Week Comments Yes 2.7 (1 standard drink = 0.6 oz p ure alcohol) Socially and seldomly PHQ-2 Answer Date Recorded Patient Health Questionnaire-2 Score 0 02/28/2025 Comments No Sex and Gender Information Value Date Recorded Sex Assigned at Not on file Legal Sex Female 8:20 PM CDT Gender Identity Not on file Sexual Orientation Not on file Last Filed Vital Signs Vital Sign Reading Time Taken Comments Blood Pressure 135/84 02/28/2025 1:19 PM CDT Pulse 86 02/28/2025 1:19 PM CDT Temperature 37.1 C (98.8 F) 02/28/2025 1:19 PM CDT Respiratory Rate 20 02/28/2025 1:19 PM CDT Oxygen Saturation 98% 02/28/2025 1:19 PM CDT Inhaled Oxygen Concentration - - Weight 121.6 kg (268 lb) 02/28/2025 1:19 PM CDT Height 170.2 cm (5' 7) 02/28/2025 1:19 PM CDT Body Mass Index 41.97 02/28/2025 1:19 PM CDT Plan of Treatment Upcoming Encounters Date Type Department Care Team (Late st Contact Info) Description 03/05/2026 8:00 AM CDT Office Visit [facility] Family & Internal Medicine - [place] [address] [place] [address] [place] [address] [facility] [address] [place] [address] Health Maintenance Due Date Last Done Comments Colorectal Cancer Screening Colonoscopy (10 Years) 1965 Hepatitis C 1981 DTaP, Tdap and Td Vaccines ( 1 - Tdap) 1982 Pneumococcal Vaccine: 50+ Years (1 of 2 - PCV) 1982 Zoster Vaccines (1 of 2) 2013 RSV Immunization or 60+ Years (1 - Risk 60-74 years 1-dose series) 2023 Cervical Cancer Screening Pa p Smear (Age 30 to 64) Every 3 Years 04/10/2024 04/10/2021, 01/10/2020 COVID-19 Vaccine (3 - 2024-2 6 season) 2025 10/30/2020, 10/02/2020 Influenza Adult (#1) 2025 Annual Physical 02/28/2026 02/28/2025, 04/10/2021, 01/10/2020 Cervical Cancer Screening Pa p with HPV Testing (Age 30 to 64) Every 5 Years 04/10/2026 04/10/2021 Cervical Cancer Screening wi th HPV 04/10/2026 Mammogram Screening 05/03/2027 05/03/2025, 04/15/2021, 01/08/2020 PHQ-2 (Physician [employer]) Completed 02/28/2025 Hepatitis A Vaccines Aged Out No long er eligible based on patient's age to complete this topic Meningococcal B Vaccine Aged Out No l onger eligible based on patient's age to complete this topic Meningococcal Vaccine Aged Out No alek micah eligible based on patient's age to complete this topic RSV Immunizations Under 20 Months Aged Out No longer eligible b ased on patient's age to complete this topic Procedures Procedure Name Priority Date/Time Associated Diagnosis Comments MG SCREENING W DELMY MELVI DIGI Routine 05/03/2025 8:53 AM CDT Screening mammogram for breast cancer THINPREP PAP W AGE BASED SCREENING PROTOCOLS Routine 04/10/2021 4:41 PM CDT Breast cancer screening by mammogram from Last 3 Months or Most Recently Relevant to Health Maintenance Results * MG SCREENING W DELMY MELVI DIGI (05/03/2025 8:53 AM CDT) Anatomical Region Laterality Modality Breast Bilateral Mammography 05/04/2025 4:51 PM CDT Impressions 05/04/2025 5:21 PM CDT ===== IMPRESSION: ===== 1. Stable mammographic appearance with no new findings to suggest malignancy in either breast. Assessment: ACR BI-RADS 2 - BENIGN FINDING(S) Recommendation: 1:Routine Screening Bilateral Comments: Ordered By: KARUNA JACQUES Interpreted By: Silver Barillas, 05/04/2025 4:51 PM Narrative 05/04/2025 5:[address]T [address] [address] EXAMINATION: Digital bilateral screening mammogram with 3-D tomosynthesis EXAM DATE/TIME: 05/03/2025 8:02 AM REASON FOR EXAM: Routine screening Breast carcinoma and paternal aunt in her 70s COMPARISON: 01/08/2020. 04/15/2021 Technique: Digital screening mammography of both breasts was performed in addition to 3-D Tomosynthesis technique. This study was read with the assistance of a computer-aided detection system. Tissue density: There are scattered areas of fibroglandular density. Findings: There is no new focal asymmetry, dominant mass lesion, area of skin thickening, or cluster of suspicious appearing calcifications in either breast to suggest malignancy. Mildly limited visualization of the axilla due to difficulty in patient position Karuna Jacques NP MAMMO Final Result * THINPREP PAP W AGE BASED SCREENING ([facility] ONLY) (04/10/2021 4:41 PM CDT) Comment: [facility] Comment: This order for age-based cervical cancer and STI screening follows ACOG guidelines(PB 168, 140, TQZ633). See individual assays for performing site location. CLINICAL INFORMATION: Information not provided [facility] Clinical Information: INFORMATION NOT PROVIDED [facility] Date of Last Pap INFORMATION NOT PROVIDED [facility] Previous Biopsy? INFORMATION NOT PROVIDED [facility] SOURCE (QST) Endocervix [facility] STATEMENT OF ADEQUACY: [facility] Comment: Satisfactory for evaluation. Endocervical/transformation zone component present. Age and/or menstrual status not provided PAP INTERPRETATION/RES ULTS Negative for intraepithelial lesion or malignancy. [facility] COMMENT: This Pap test has been evaluated with computer assisted technology. 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 [address] COMMENT: [facility] Comment: EXPLANATORY NOTE: The Pap is a screening test for cervical cancer. It is not a diagnostic test and is subject to false negative and false positive results. It is most reliable when a satisfactory sample, regularly obtained, is submitted with relevant clinical findings and history, and when the Pap result is evaluated along with historic and current clinical information. HPV MRNA E6/E7 Not Detected Not Detected [facility] Comment: Methodology: Casualty Claims Supervisor-Mediated Amplification This assay detects E6/E7 viral messenger RNA (mRNA) from 14 high-risk HPV types (16,18,31,33,35,39,45,51,52,56,58,59,66,68). The analytical performance characteristics of this assay have been determined by [facility]. The modifications have not been cleared or approved by the FDA. This assay has been validated pursuant to the CLIA regulations and is used for clinical purposes. For additional information, please refer to http://education.[employer]/faq/OHH687p7 (This link if provided for information/ educational purposes only.) 04/10/2021 4:41 PM CDT 04/10/2021 11:27 PM CDT us Naya MELGOZA PATHOLOGY/CYTOLOGY ORDERABLE S Final Result [facility] [address] [place] [address] [facility] [address] [place] [address] from Last 3 Months or Most Recently Relevant to Health Maintenance Insurance [id number] Care Teams Information Services Assistant Relationship Specialty [place] [address] [address] [address] [place] [address] PCP - General Nurse Practitioner Family 01/12/25
[2025-07-06] MEDS: ACETAMINOPHEN 500 MG TABLET 1000 MG PO (11:34)
[2025-07-06 12:15] VITALS: BP 145/64; PULSE 72; TEMP 36.6; O2SAT 98; BMI 42.5
--- NOTE | 2025-07-06 12:34 | WPDANESEPPF ---
Anes - Initial Pre Proc Eval Procedure: Operation Date: 07/06/25 13:00 Proposed Procedures p Hysteroscopy Dilation and Curettage - Nathan Barfield MD Date/Time: 07/06/25 12:34 Surgeon: Nathan Barfield MD Pre Op Diagnosis: Post Menopausal Bleeding Patient Data Age: 59 Gender: F Height: 1.7 m Weight: 123 kg Last Vital Signs Temp 36.6 C 07/06/25 12:15 Pulse 72 07/06/25 12:15 BP 145/64 H 07/06/25 12:15 Pulse Ox 98 07/06/25 12:15 O2 Del Method Room Air 07/06/25 12:15 Allergies Allergy/AdvReac Type Severity Reaction Status Date / Time Penicillins Allergy Mild Hives Verified 07/03/25 08:38 Home Medications ?Medication ?Instructions ?Recorded ?Confirmed ?Type multivitamin (Daily Multi-Vitamin 1 tablet PO DAILY 07/03/25 07/03/25 History tablet) vitamin B complex 1 tablet PO DAILY 07/03/25 07/03/25 History Patient hx anesthesia problems: none Family hx anesthesia problems: none Results Review: All pre-operative results and documents have been reviewed as part of the pre-operative evaluation. [facility] Social History Social History Years smoked: 40 Smoking status: Current every day smoker Tobacco type: cigarettes Living arrangements: with family Spiritual care concerns: No Anes - Eval Final PreProcedure Day of Procedure 07/06/25 12:34 Patient weight: morbidly obese Heart: regular rate and rhythm Lungs: clear to auscultation Airway: Mallampati scale class III Neurological: alert and oriented Last oral intake: >/= 8 hours ASA classification: III Emergent: no Anesthetic plan: proceed Anesthesia type and monitoring: general GIVS and standard monitoring Results Review: All pre-operative results and documents have been reviewed as part of the pre-operative evaluation. Informed Consent: The patient's anesthetic plan and its attendant risks and benefits were discussed with the patient/family/POA. Questions were solicited and answers provided to the satisfaction of the patient/family/POA.
--- NOTE | 2025-07-06 12:47 | PM.IMHP2 ---
H&P: HPI History of Present Illness Date/Time: 07/06/25 12:47 Chief Complaint: Vaginal bleeding Narrative: this patient is a 59-year-old female with postmenopausal bleeding. Ultrasound revealed a very thickened endometrium with vascularity. We talked about the significance of this. Talked about the risk of malignancy. We agreed to proceed with hysteroscopy D and C at the hospital. I spent over 30 minutes on her care in total including chart review, ultrasound interpretation, documentation. The patient understands the procedure. The procedure was described to the patient in great detail. the patient also understands the risks. The risks were also explained in detail. She understands that injuries May occur during surgery. She understands these injuries can result in hospitalization, more surgery, and severe illness. She understands there is risk of hemorrhage and infection. Review of Systems Review of Systems: All systems reviewed & are unremarkable except as noted in HPI and below Constitutional: Constitutional: Denies chills, Denies fatigue, Denies fever(s) and Denies weakness Eyes: Eyes: Denies blurry vision, Denies change in vision, Denies loss of peripheral vision, Denies loss of vision, Denies other visual disturbances and Denies eye pain ENT: Denies vertigo, Denies dizziness, Denies hearing loss, Denies mouth pain, Denies nasal obstruction, Denies neck mass and Denies neck pain Cardiovascular: Cardiovascular: Denies chest pain, Denies diaphoresis, Denies syncope, Denies leg edema and Denies dyspnea Respiratory: Respiratory: Denies chest congestion, Denies cough, Denies hemoptysis, Denies dyspnea and Denies wheezing Gastrointestinal: Gastrointestinal: Denies abdominal pain, Denies constipation, Denies diarrhea, Denies nausea and Denies vomiting Genitourinary: Genitourinary: Denies hematuria, Denies change in libido, Denies nocturia, Denies genital lesions, Denies flank pain and Denies urinary urgency Musculoskeletal: Musculoskeletal: Denies abnormal gait, Denies back pain, Denies myalgias, Denies arthralgias, Denies joint swelling, Denies muscle weakness and Denies neck pain Integumentary/Breasts: Skin/Breast: Denies swelling, Denies breast pain, Denies breast mass, Denies dry skin, Denies nipple discharge, Denies unusual bruising and Denies jaundice Neurologic: Denies Neuro-related abnormal movements, Denies Abnormal speech present, Denies abnormal gait, Denies behavioral changes, Denies confusion, Denies vertigo, Denies dizziness, Denies syncope, Denies loss of vision, Denies memory loss, Denies convulsions and Denies weakness Psychiatric: Psychiatric: Denies abnormal sleep pattern, Denies behavioral changes, Denies change in libido, Denies confusion, Denies depression, Denies anhedonia and Denies memory loss Endocrine: Endocrine: Reports no additional endocrine complaints, Denies change in libido and Denies fatigue Hematologic/Lymphatic: Hematologic/Lymphatic: Reports no additional hematologic/lymphatic complaints Allergic/Immunologic: Allergic/Immunologic: Reports no additional allergic/immunologic complaints and Denies wheezing PMFSH Social History Social History Years smoked: 40 Smoking status: Current every day smoker Tobacco type: cigarettes Living arrangements: with family Spiritual care concerns: No Meds Home Medications and Allergies Home Medications ?Medication ?Instructions ?Recorded ?Confirmed ?Type multivitamin (Daily Multi-Vitamin 1 tablet PO DAILY 07/03/25 07/03/25 History tablet) vitamin B complex 1 tablet PO DAILY 07/03/25 07/03/25 History Allergies Allergy/AdvReac Type Severity Reaction Status Date / Time Penicillins Allergy Mild Hives Verified 07/03/25 08:38 Vital Signs Vital Signs - 24 hr 07/06/25 12:15 Temperature 98 F Pulse Rate 72 Blood Pressure 145/64 H Pulse Oximetry 98 Oxygen Delivery Room Air Exam Const: General: cooperative, healthy appearing, comfortable and no acute distress Orientation/consciousness: oriented to person, oriented to place and oriented to time HENMT: Head: normal to inspection Ears: external ears normal Face/Nose/Sinus: Normal external nose present and normal facial exam Face and sinus: normal facial exam Eyes: General: appearance normal, both eyes and all related structures Neck: Neck: normal visual inspection, trachea midline and supple Resp: Auscultation: clear to auscultation bilaterally, no crackles, no rales, no rhonchi and no wheezes Cardio: Rate: regular rate Rhythm: regular rhythm Heart sounds: no click, no murmurs and no rubs GI: GI Palp: No abdominal tenderness, No Soft to palpation, No Tenderness to palpation present (GI) and No Palpable mass present Auscultation: normal bowel sounds Skin: General skin exam: normal color and no rashes or lesions noted Neuro: General: oriented to person, oriented to place and oriented to time Extrem: General: normal to inspection, no joint enlargement, no clubbing, cyanosis or edema, no pedal edema and no calf tenderness Psych: Appearance: grossly normal Mental Status: mental status grossly normal Speech and movement: Normal speech and movement present Assessment and Plan Assessment and plan (1) Postmenopausal bleeding: Code(s): N95.0 - Postmenopausal bleeding Status: Acute Plan This patient is a 59-year-old female with postmenopausal bleeding. We agreed to perform hysteroscopy D&C. She understands risks, benefits, and alternatives. She has completed informed consent process and is ready to proceed
--- NOTE | 2025-07-06 12:49 | WPDHPUPDATE1 ---
History and Physical Update Update Date/Time: 07/06/25 12:49 History and Physical has been reviewed, including an updated exam of the patient. There are NO changes in the patient's condition. Risks, benefits, and alternatives have been discussed and questions answered. Patient agrees to proceed with procedure.
--- NOTE | 2025-07-06 13:22 | S_PTH ---
PATIENT: Juanita Collins LOC: [facility] U#:[id number] AGE/SX: 59/F ROOM: RE07/06/[address]: Nathan Barfield MD : 1965 BED: DIS: 07/06/2025 SPEC #: [id number] RECD: 07/09/25 07:50 STATUS: [place] RE #: [id number] RADHA: 07/06/25 13:[address]: Nathan Barfield DEPT: [facility] Surgical RECD BY: Diandra Urena ENTERED: 07/09/25 07:50 SP TYPE: Surgical OTHR DR: Thais Parker, Tissues: A - Endometrial Curettings Procedures: Hematoxylin and Eosin Stain Gross and Microscopic Level 4 P53 MLH1 MSH2 MSH6 PMS2
[2025-07-06] MEDS: KETOROLAC 30 MG/ML VIAL (*BKC) IV PUSH (13:26)
[2025-07-06 13:54] VITALS: BP 151/68; PULSE 68; O2SAT 96
[2025-07-06] MEDS: LACTATED RINGERS 1,000 ML 30 ML IV CONT (13:54)
[2025-07-06 14:00] VITALS: BP 141/59; PULSE 50; O2SAT 95
--- NOTE | 2025-07-06 14:13 | P.OP_ITS ---
Procedure Note - Detailed Date of Procedure 07/06/25 Pre-op Diagnosis Post Menopausal Bleeding Post-op Diagnosis Same Procedure Performed Hysteroscopy D&C, Myomectomy Surgeon Nathan Barfield MD Anesthesia MAC Indications Postmenopausal bleed Findings Intrauterine adhesions submucous masses consistent with submucous fibroids. Fibroids were calcified and avascular. Description of Procedure the patient was taken the operating room. She was prepped and draped in the dorsal lithotomy position after induction of mac anesthesia. A speculum was placed in the vagina. The cervix was grasped with a tenaculum. The cervix was dilated about 1 cm. The hysteroscope was inserted. The intrauterine cavity and endocervix were evaluated. Hysteroscope was withdrawn. A medium-size curette was used to curettage all the surfaces were within the endometrial cavity. the sample was collected on Telfa and sent to pathology. Hysteroscope was used with the rotational blade to carve out a any number of submucous ma sses. The hysteroscope was reinserted and the above findings were noted. Patient tolerated the procedure well. The speculum and tenaculum were removed. She was taken recovery room in stable condition. Sponge lap and needle counts were correct x2. Estimated Blood Loss 40 Drains No Packing No Pathology Yes Complications No immediate complications Condition Stable Disposition PACU
[2025-07-06 14:30] VITALS: BP 127/62; PULSE 53; O2SAT 99
[2025-07-06] MEDS: oxyCODONE HCL (*CRX) 5 MG TAB IR PO (14:32)
[2025-07-06 15:00] VITALS: BP 140/79; PULSE 53
== END 2025-07-06 15:03 | disposition home or self-care (01) ==
PROVIDERS: PCP Emergency Medicine; Visit Provider Obstetrics & Gynecology
PROC: 0U5B8ZZ Destruction of Endometrium, Via Natural or Artificial Opening Endoscopic (ICD-10-PCS; CPT 58563; principal; 2025-07-06 13:00)
DX: C54.1 Malignant neoplasm of endometrium (principal); N95.0 Postmenopausal bleeding; F17.210 Nicotine dependence, cigarettes, uncomplicated; E66.01 Morbid (severe) obesity due to excess calories; Z68.41 Body mass index [BMI] 40.0-44.9, adult
CPT/HCPCS: 58561; 88305; 88342; A9270; J1885; J2004; J2250; J2704; J3010; J7120